=== PATIENT | female | born 1945 | race Caucasian/White ===

== ENCOUNTER → 2016-08-15 | Outpatient (CLI) | payer OTHER ==
[~2016-08-15] MED LIST: MAGNEVIST IV PRN
--- NOTE | 2016-08-15 10:01 | DIAGNOSTIC IMAGING REPORT ---
MRI OF THE ABDOMEN COMBO CLINICAL HISTORY: Renal nodule. Hepatic cysts.. COMPARISON STUDY: 02/26/2016. TECHNIQUE: MRI of the abdomen is performed transverse T1 and T2-weighted sequences in the axial and coronal planes. Contrast enhanced sequences were acquired following the IV administration of . FINDINGS: Lower chest: No pleural effusion is identified. The heart is normal in size. Liver: Mild fatty infiltration. Several small hepatic cysts unchanged. Gallbladder: Unremarkable. Spleen: Normal in size and signal intensity. Pancreas: Unremarkable. Adrenal glands: Unremarkable. Kidneys: Unchanging 5 mm exophytic nodule left kidney. Several renal microcysts are present unchanged. No evidence for new or interval finding. No significant postcontrast enhancement of any densities in question. No significant upper abdominal adenopathy. Bowel: Visualized portions of the small bowel and colon show no evidence of obstruction. Peritoneum: There is no abdominal ascites. Lymphadenopathy: None. Skeletal structures: Visualized skeletal structures times are normal marrow signal intensity. IMPRESSION: 1. Several unchanging hepatic microcysts. 2. Unchanging 5 mm exophytic indeterminate nodule left kidney. The stability present diminishes somewhat the possibility of a neoplastic process. 3. A repeat 12 month MRI follow-up is suggested. 4. No evidence for new or interval process as compared to the prior study. Electronically signed by: Tereso Staples M.D. 08/15/2016 9:59 AM Dictated Date/Time: 08/15/2016 9:55 AM
== END | disposition home or self-care (01) ==
LOC: C.MRIBC 08:26
PROVIDERS: ATTEND Internal Medicine
DX: N28.89 Other specified disorders of kidney and ureter (principal)

== ENCOUNTER → 2016-08-30 | Outpatient (CLI) | payer OTHER ==
[2016-08-30 13:16] LABS: ALT/SGPT 22 U/L (12-78); AST/SGOT 15 U/L (15-37); BLOOD UREA NITROGEN 15 mg/dl (7-18); BUN/CREATININE RATIO 16.6 (10-20); CALCIUM 9.2 mg/dl (8.5-10.1); CARBON DIOXIDE 28 mmol/L (21-32); CHLORIDE 105 mmol/L (98-107); CREATININE 0.89 mg/dl (0.60-1.20); GLUCOSE 97 mg/dl (70-99); POTASSIUM 3.6 mmol/L (3.5-5.1); SODIUM 143 mmol/L (136-145)
[2016-08-30 13:20] LABS: HEPATITIS B AB NEG
[2016-08-30 13:28] LABS: ALB/GLOB RATIO 1.1 (0.9-2); ALKALINE PHOSPHATASE 49 U/L (45-117); CHOLESTEROL 194 mg/dl (0-200); CHOLESTEROL/HDL RATIO 3.8; HDL CHOLESTEROL 51 mg/dl; LDL CHOLESTEROL CALCULATED 99 mg/dl; TRIGLYCERIDES 218 mg/dl (0-150); VERY LOW DENSITY LIPOPROT CALC 44 mg/dl
== END | disposition home or self-care (01) ==
LOC: C.LABPBG 08:22
PROVIDERS: ATTEND Internal Medicine
DX: R79.9 Abnormal finding of blood chemistry, unspecified (principal); K76.0 Fatty (change of) liver, not elsewhere classified

== ENCOUNTER → 2017-02-16 | Outpatient (CLI) | payer OTHER ==
[2017-02-16 13:11] LABS: ALT/SGPT 31 U/L (12-78); AST/SGOT 20 U/L (15-37); BLOOD UREA NITROGEN 18 mg/dl (7-18); CALCIUM 9.4 mg/dl (8.5-10.1); CARBON DIOXIDE 31 mmol/L (21-32); CHLORIDE 105 mmol/L (98-107); CREATININE 0.85 mg/dl (0.60-1.20); GLUCOSE 90 mg/dl (70-99); POTASSIUM 3.6 mmol/L (3.5-5.1); SODIUM 140 mmol/L (136-145)
[2017-02-16 13:22] LABS: ALKALINE PHOSPHATASE 52 U/L (45-117)
== END | disposition home or self-care (01) ==
LOC: C.LABPBG 10:09
PROVIDERS: ATTEND Internal Medicine
DX: K76.0 Fatty (change of) liver, not elsewhere classified (principal)

== ENCOUNTER → 2017-08-17 | Outpatient (CLI) | payer OTHER ==
[2017-08-17 12:47] LABS: ALBUMIN 3.7 gm/dl (3.4-5.0); ALT/SGPT 27 U/L (12-78); AST/SGOT 22 U/L (15-37); BLOOD UREA NITROGEN 15 mg/dl (7-18); CARBON DIOXIDE 31 mmol/L (21-32); CREATININE 0.98 mg/dl (0.60-1.20); GLUCOSE 98 mg/dl (70-99); POTASSIUM 3.8 mmol/L (3.5-5.1); SODIUM 139 mmol/L (136-145)
[2017-08-17 12:49] LABS: ALKALINE PHOSPHATASE 50 U/L (45-117); TOTAL PROTEIN 7.2 gm/dl (6.4-8.2)
== END | disposition home or self-care (01) ==
LOC: C.LABPBG 08:42
PROVIDERS: ATTEND Internal Medicine
DX: E78.5 Hyperlipidemia, unspecified (principal); M85.80 Other specified disorders of bone density and structure, unspecified site

== ENCOUNTER → 2017-08-22 | Outpatient (CLI) | payer OTHER ==
--- NOTE | 2017-08-22 17:13 | DIAGNOSTIC IMAGING REPORT ---
ABDOMEN COMBO CLINICAL HISTORY: 72 years-old Female presenting with N28.89 Renal mass, [id number]. TECHNIQUE: Multisequence, multiplanar MR imaging of the abdomen was performed before and after the administration of intravenous contrast. IV contrast: 8 mL of Gadavist. COMPARISON: 08/15/2016. FINDINGS: Localizer images: Unremarkable. Lung bases: Lungs and pleural spaces clear. Normal heart size. No pericardial or pleural effusion. Liver: Normal morphology. Multiple well-defined nonenhancing T2 hyperintense lesions compatible with hepatic cysts or hamartomas. Hepatic fat fraction measures 3.5%, which is normal. Patent hepatic vasculature. Biliary: No intrahepatic or extrahepatic biliary ductal dilatation. Gallbladder decompressed. Pancreas: Unchanged T2 hyperintense nonenhancing 4 mm cyst in the pancreatic head-neck (series 4 image 15). No pancreatic ductal dilatation. Spleen: Normal. Adrenal glands: Normal. Kidneys and ureters: Scattered T1 hyperintense subcentimeter lesions in the left kidney. One of these lesions is the previously noted indeterminate exophytic lesion arising from the lower pole to interpolar region of the left kidney, which has slightly decreased in size now measuring 4 mm, previously 5 mm. The lesion is T2 hypointense. Several T2 hyperintense nonenhancing lesions noted in the kidneys, likely simple cyst but too small to characterize. No hydronephrosis. Single renal arteries bilaterally. Allowing for degradation of delayed postcontrast imaging, no evidence of enhancement of this lesion. Bowel: Normal appendix. No bowel obstruction. Peritoneal cavity: No free fluid or intraperitoneal gas. Lymph nodes: No enlarged lymph nodes in the abdomen. Vasculature: Aorta and IVC patent and normal in caliber. Abdominal wall: Normal. Musculoskeletal: Normal. IMPRESSION: 1. Slight interval decrease in size of the previously noted left renal lesion, which is T1 hyperintense and nonenhancing, characteristic of a hemorrhagic or proteinaceous renal cyst. No evidence of a solid renal neoplasm. 2. 4 mm pancreatic cyst, which may represent a small side branch intraductal papillary mucinous neoplasm or mucinous cyst. No worrisome features. Electronically signed by: Pedro Carrasco M.D. 08/22/2017 5:12 PM Dictated Date/Time: 08/22/2017 5:01 PM
== END | disposition home or self-care (01) ==
LOC: C.MRI 15:19
PROVIDERS: ATTEND Internal Medicine
DX: N28.89 Other specified disorders of kidney and ureter (principal); K86.2 Cyst of pancreas

== ENCOUNTER → 2017-10-06 | Outpatient (CLI) | payer OTHER ==
--- NOTE | 2017-10-06 15:04 | MAMMOGRAPHY REPORT ---
BILATERAL DIGITAL SCREENING MAMMOGRAM TOMOSYNTHESIS WITH CAD: 10/06/2017 CLINICAL HISTORY: Routine screening. Patient has no complaints. TECHNIQUE: Breast tomosynthesis in addition to standard 2D mammography was performed. Current study was also evaluated with a Computer Aided Detection (CAD) system. COMPARISON: Comparison is made to exams dated: 10/01/2015 mammogram, 09/17/2014 mammogram, 09/16/2013 m ammogram, 09/14/2012 mammogram, 09/09/2011 mammogram, and 08/04/2009 ultrasound - [facility] nter. BREAST COMPOSITION: The tissue of both breasts is almost entirely fatty. FINDINGS: No suspicious masses, calcifications, or areas of architectural distortion are noted in ei ther breast. There has been no significant interval change compared to prior exams. Asymmetry in the left lower inner quadrant is stable compared to multiple prior exams. IMPRESSION: ACR BI-RADS CATEGORY 2: BENIGN There is no mammographic evidence of malignancy. A 1 year screening mammogram is recommended. The pa tient will receive written notification of the results. Approximately 10% of breast cancers are not detected with mammography. A negative mammographic report should not delay biopsy if a clinically suggestive mass is present. Karla Angela M.D. /:10/06/2017 07:46:55 [employer]: Theresa Chu, [facility] letter sent: Normal 1/2 BI-RADS Code: ACR BI-RADS Category 2: Benign
== END | disposition home or self-care (01) ==
LOC: C.MAMM 07:23
PROVIDERS: ATTEND Internal Medicine
DX: Z12.31 Encounter for screening mammogram for malignant neoplasm of breast (principal)

== ENCOUNTER 2018-08-24 17:15 | Observation (INO) ==
[2018-08-24] MEDS ORDERED: ACETAMINOPHEN 1,000 MG/100 ML VIAL IV STA (17:38)
[2018-08-24 18:11] LABS: Basophils # (auto) 0.02 K/uL (0-0.2); Basophils % (auto) 0.1 %; Eosinophils # (auto) 0.09 K/uL (0-0.5); Eosinophils % (auto) 0.7 %; Hematocrit (blood only) 44.2 % (37-47); Hemoglobin 14.5 g/dL (12.0-16.0); Immature Granulocytes # (auto) 0.02 K/uL (0.00-0.02); Immature Granulocytes % (auto) 0.1 %; Lymphocytes # (auto) 4.31 K/uL (1.2-3.4); Lymphocytes % (auto) 32.1 %; Mean Corpuscular Hgb Conc 32.8 g/dL (32-36); Mean Corpuscular Volume 91.9 fL (80-100); Mean Platelet Volume 10.2 fL (7.4-10.4); Monocytes # (auto) 0.94 K/uL (0.11-0.59); Neutrophils # (auto) 8.05 K/uL (1.4-6.5); Platelet Count 209 K/uL (130-400); RDW Coefficient of Variation 13.5 % (11.5-14.5); RDW Standard Deviation 45.3 fL (36.4-46.3); Red Blood Count 4.81 M/uL (4.2-5.4); White Blood Count 13.43 K/uL (4.8-10.8)
--- NOTE | 2018-08-24 18:24 | XRay Report ---
XR chest 1V portable CLINICAL HISTORY: Atypical chest pain COMPARISON STUDY: No previous studies for comparison. FINDINGS: The heart is mildly enlarged. There is no failure. There is no lobar consolidation. There a re no pleural effusions. There is minor basilar atelectasis.[ IMPRESSION: Minor basilar atelectasis. No evidence of lobar consolidation. No evidence of failure. Electronically signed by: Alex Zuñiga M.D. 08/24/2018 6:23 PM
[2018-08-24 18:27] LABS: Alanine Aminotransferase 21 U/L (12-78); Albumin Level 3.6 gm/dl (3.4-5.0); Aspartate Aminotransferase 12 U/L (15-37); BUN Creatinine Ratio 14.3 (10-20); Bilirubin Direct 0.1 mg/dl (0-0.2); Blood Urea Nitrogen 13 mg/dl (7-18); Calcium 9.1 mg/dl (8.5-10.1); Carbon Dioxide 30 mmol/L (21-32); Chloride 104 mmol/L (98-107); Creatinine Clr Calc Pharmacy 61.5 ml/min; Est GFR (African American) 72.5; Est GFR (Non-African American) 62.6; Glucose 87 mg/dl (70-99); Potassium 3.5 mmol/L (3.5-5.1); Sodium 139 mmol/L (136-145)
[2018-08-24 18:30] LABS: Albumin Globulin Ratio 0.9 (0.9-2); Alkaline Phosphatase 52 U/L (45-117); Bilirubin,Total 0.5 mg/dl (0.2-1); Total Protein 7.6 gm/dl (6.4-8.2); Troponin I < 0.015 ng/ml (0-0.045)
[2018-08-24] MEDS ORDERED: OPTIRAY 320 125ml IV PRN (20:15)
--- NOTE | 2018-08-24 20:23 | CT Scan Report ---
CT ANGIOGRAM OF THE CHEST CLINICAL HISTORY: Atypical chest pain and shortness of breath. Possible pulmonary embolism. COMPARISON STUDY: Chest x-ray dated August 24, 2018, MRI the abdomen dated August 22, 2017 TECHNIQUE: Following the IV administration of 79 mL of Optiray-320, CT angiogram of the thorax was pe rformed from the thoracic inlet to the lung bases utilizing the pulmonary embolus protocol. Images ar e reviewed in the axial, sagittal, and coronal planes. IV contrast was administered without complicat ion. MIP imaging was performed. A dose lowering technique was utilized adhering to the principles of ALARA. CT DOSE: 421.48 mGy.cm FINDINGS: The visualized portions of the upper abdomen reveal hepatic hypodensities. These were previously susp ected represent hepatic cysts or hamartomas No pathologically enlarged axillary mediastinal or hilar lymph nodes were visualized. There was no evidence of thoracic aortic dilatation. There are moderate bilateral pulmonary artery filling defects involving the right lower lobe left low er lobe and left upper lobe. The findings are most pronounced within the right lower lobe. There is e quivocal slight bowing of the interventricular septum and mild right ventricular strain cannot be exc luded.. There is a trace right pleural effusion There are minor right lower lobe airspace opacities, possibly secondary to pulmonary infarction given the extensive pulmonary embolism. IMPRESSION: Acute bilateral pulmonary embolism. Electronically signed by: Alex Zuñiga M.D. 08/24/2018 8:22 PM
[2018-08-24] MEDS ORDERED: ENOXAPARIN 1 MG/KG SC STA (20:29)
[2018-08-24] MEDS ORDERED: ENOXAPARIN 100 MG/1ML SYR ONE (20:34)
[2018-08-24] MEDS ORDERED: ENOXAPARIN 80 MG/0.8 ML SYR SQ ONE (20:45)
--- NOTE | 2018-08-24 21:34 | History & Physical Report ---
Date of Service August 24, 2018 Assessment & Plan (1) Bilateral pulmonary embolism: 73-year-old female with a past medical history of osteoporosis on raloxifene presents with 1 day of right shoulder/back pain and shortness of breath. Patient was found to have bilateral pulmonary embolism. Bilateral pulmonary embolism -CT showed acute bilateral pulmonary embolism, with concern for possible right heart strain on CT. Bedside echocardiogram was normal Admit to telemetry, EKG in the morning Patient started on Lovenox in the ED, will continue BID dosing Case management consult to discuss outpatient anticoagulation Osteoporosis Allergic to Fosamax Currently on raloxifenediscontinuing the medication as it puts her at increased clotting risk Hyperlipidemia Continue simvastatin Hypertension Continue Triamterene-HCTZ FENheart healthy diet DVT prophylaxisLovenox (2) HTN (hypertension): (3) Bursitis of right hip: (4) Age related osteoporosis: (5) Hypothyroidism: (6) Hyperlipidemia: History of Present Illness Chief Complaint: 73-year-old female with a past medical history of osteoporosis , currently on raloxifene presents with 1 day of right shoulder/back pain and shortness of breath. She says that the pain started in her back last night she went to bed and says that it migrated to her shoulder throughout the day today. She is not overtly short of breath, but she says that when she went upstairs today at work she noticed that she was more winded than usual. She relates that she had left calf pain over the past couple weeks. The patient is currently on raloxifene for osteoporosis. She states that she was started after discovering she was allergic to Fosamax. She says that she is pretty sedentary at work and also relates that she has been less active since dealing with right hip pain-- diagnosed right trochanteric bursitis. She denies any cough, hemoptysis. She denies any recent surgeries. Patient is a non-smoker. She does endorse a family history of blood clots. Primary Care Provider: Pedro Ortega MD Allergies Allergy/AdvReac Type Severity Reaction Status Date / Time alendronate sodium Allergy Mild chest pain Verified 08/24/18 18:31 Home Medications Home Medications Medication Instructions Recorded Confirmed Type calcium carbonate-vitamin D3 1 tab PO BID 08/24/18 08/24/18 History [Caltrate 600 + D] latanoprost 1 drp OPB PM 08/24/18 08/24/18 History levothyroxine 112 mcg PO DAILY 08/24/18 08/24/18 History omega 6-dzg-zes-fish oil [Fish Oil] 1 cap PO DAILY 08/24/18 08/24/18 History raloxifene 60 mg PO DAILY 08/24/18 08/24/18 History simvastatin 20 mg PO DAILY 08/24/18 08/24/18 History triamterene-hydrochlorothiazid 1 tab PO DAILY 08/24/18 08/24/18 History Past Med/Surg History Surgical History No pertinent past surgical history Family History Other Family history non-contributory Social History Current Living Situation: Spouse Other Information That Helps Us Care for You: No Feels Safe at Home: Yes Safety Concerns: Feels Safe At This Time Smoking Status: Never smoker Do You Dip or Chew Tobacco: No Second Hand Exposure: No Hx Alcohol Use: No Hx Substance Use: No Beliefs That Will Affect Care: None Preferred Language: Vietnamese Communication Ability: Effective [place] Required: No Review of Systems Constitutional: no fever, no chills and no sweats Eyes: no blind spots, no eye pain and no spots in vision Respiratory: + dyspnea on exertion and + pain on inspiration; no cough, no chest congestion, no hemoptysis and no wheezing Cardiovascular: + chest pain; no chest pain with activity, no palpitations and no calf pain Gastrointestinal: no abdominal pain, no nausea and no vomiting Genitourinary (Female): no dysuria, no urinary frequency and no urinary hesitancy Musculoskeletal: + back pain and + joint pain Integumentary: no rash, no lesions and no sores Neurologic: + headache(s) Physical Exam 2 Vital Signs (Past 24 Hours): Last Vital Signs Temp 37.1 C 08/24/18 17:17 Pulse 66 08/24/18 17:17 Resp 20 08/24/18 17:17 BP 173/77 H 08/24/18 17:17 Pulse Ox 96 08/24/18 18:04 Constitutional: WD/WN, vitals as above Eyes: PERRL, conjunctivae normal, anicteric sclerae ENMT: external ear and nose normal, oropharynx normal Neck: trachea midline, no thyromegaly Respiratory: normal respiratory effort, lungs clear to auscultation Cardiovascular: RRR, no murmur, no edema Gastrointestinal (Abdomen): normal bowel sounds, soft, nontender, no hepatosplenomegaly Musculoskeletal: no cyanosis or clubbing, extremities motor strength 5/5 Skin: no rashes, warm and dry Psychiatric: A+Ox3, euthymic affect Lymphatic: no cervical or axillary lymphadenopathy Results & Data Laboratory Results Laboratory Last Values WBC 13.43 K/uL (4.8-10.8) H 08/24/18 18:00 RBC 4.81 M/uL (4.2-5.4) 08/24/18 18:00 Hgb 14.5 g/dL (12.0-16.0) 08/24/18 18:00 Hct 44.2 % (37-47) 08/24/18 18:00 MCV 91.9 fL (80-100) 08/24/18 18:00 MCH 30.1 pg (25-34) 08/24/18 18:00 MCHC 32.8 g/dL (32-36) 08/24/18 18:00 RDW Std Deviation 45.3 fL (36.4-46.3) 08/24/18 18:00 RDW Coeff of Edy 13.5 % (11.5-14.5) 08/24/18 18:00 Plt Count 209 K/uL (130-400) 08/24/18 18:00 MPV 10.2 fL (7.4-10.4) 08/24/18 18:00 Immature Gran % (Auto) 0.1 % 08/24/18 18:00 Neut % (Auto) 60.0 % 08/24/18 18:00 Lymph % (Auto) 32.1 % 08/24/18 18:00 Mcduffie % (Auto) 7.0 % 08/24/18 18:00 Eos % (Auto) 0.7 % 08/24/18 18:00 Baso % (Auto) 0.1 % 08/24/18 18:00 Immature Gran # (Auto) 0.02 K/uL (0.00-0.02) 08/24/18 18:00 Neut # (Auto) 8.05 K/uL (1.4-6.5) H 08/24/18 18:00 Lymph # (Auto) 4.31 K/uL (1.2-3.4) H 08/24/18 18:00 Mcduffie # (Auto) 0.94 K/uL (0.11-0.59) H 08/24/18 18:00 Eos # (Auto) 0.09 K/uL (0-0.5) 08/24/18 18:00 Baso # (Auto) 0.02 K/uL (0-0.2) 08/24/18 18:00 PT 10.0 Seconds (9.0-12.0) 08/24/18 18:00 INR 1.0 (0.9-1.1) 08/24/18 18:00 APTT 26.4 Seconds (21.0-31.0) 08/24/18 18:00 PTT Ratio 1.0 08/24/18 18:00 D-Dimer 3720 ug/L FEU (0-500) H* 08/24/18 18:00 Sodium 139 mmol/L (136-145) 08/24/18 18:00 Potassium 3.5 mmol/L (3.5-5.1) 08/24/18 18:00 Chloride 104 mmol/L (98-107) 08/24/18 18:00 Carbon Dioxide 30 mmol/L (21-32) 08/24/18 18:00 Anion Gap 5.0 (3-11) 08/24/18 18:00 BUN 13 mg/dl (7-18) 08/24/18 18:00 Creatinine 0.91 mg/dl (0.6-1.2) 08/24/18 18:00 Est Cr Clr Drug Dosing 61.5 ml/min 08/24/18 18:00 Est GFR ( Amer) 72.5 08/24/18 18:00 Est GFR (Non-Af Amer) 62.6 08/24/18 18:00 BUN/Creatinine Ratio 14.3 (10-20) 08/24/18 18:00 Glucose 87 mg/dl (70-99) 08/24/18 18:00 Calcium 9.1 mg/dl (8.5-10.1) 08/24/18 18:00 Magnesium 2.0 mg/dl (1.8-2.4) 08/24/18 18:00 Total Bilirubin 0.5 mg/dl (0.2-1) 08/24/18 18:00 Direct Bilirubin 0.1 mg/dl (0-0.2) 08/24/18 18:00 AST 12 U/L (15-37) L 08/24/18 18:00 ALT 21 U/L (12-78) 08/24/18 18:00 Alkaline Phosphatase 52 U/L (45-117) 08/24/18 18:00 Troponin I < 0.015 ng/ml (0-0.045) 08/24/18 18:00 Total Protein 7.6 gm/dl (6.4-8.2) 08/24/18 18:00 Albumin 3.6 gm/dl (3.4-5.0) 08/24/18 18:00 Globulin 4.0 gm/dl (2.5-4.0) 08/24/18 18:00 Albumin/Globulin Ratio 0.9 (0.9-2) 08/24/18 18: Lipase 254 U/L (73-393) 08/24/18 18:[address] ANGIOGRAM OF THE CHEST CLINICAL HISTORY: Atypical chest pain and shortness of breath. Possible pulmonary embolism. COMPARISON STUDY: Chest x-ray dated August 24, 2018, MRI the abdomen dated August 22, 2017 TECHNIQUE: Following the IV administration of 79 mL of Optiray-320, CT angiogram of the thorax was performed from the thoracic inlet to the lung bases utilizing the pulmonary embolus protocol. Images are reviewed in the axial, sagittal, and coronal planes. IV contrast was administered without complication. MIP imaging was performed. A dose lowering technique was utilized adhering to the principles of ALARA. CT DOSE: 421.48 mGy.cm FINDINGS: The visualized portions of the upper abdomen reveal hepatic hypodensities. These were previously suspected represent hepatic cysts or hamartomas No pathologically enlarged axillary mediastinal or hilar lymph nodes were visualized. There was no evidence of thoracic aortic dilatation. There are moderate bilateral pulmonary artery filling defects involving the right lower lobe left lower lobe and left upper lobe. The findings are most pronounced within the right lower lobe. There is equivocal slight bowing of the interventricular septum and mild right ventricular strain cannot be excluded.. There is a trace right pleural effusion There are minor right lower lobe airspace opacities, possibly secondary to pulmonary infarction given the extensive pulmonary embolism. IMPRESSION: Acute bilateral pulmonary embolism. Electronically signed by: Alex Zuñiga M.D. 08/24/2018 8:22 PM Patient: STEVE LOZA EAdmit Date: 08/24/18 MR#: [id number] Acct ID:[id number]: [facility] Zip: [place] [address] Age: 73Location: ED Sex: F Room/Bed: Att Phy: Diagnosis: SOB, RT ARM PAIN, BACK PAIN Terra Phy: Pedro Ortega M.D.Service Date: 08/24/18 Fam Phy: Interpreting Phy: Alex Zuñiga MD Admit Phy: Ordering Phy: Jared Washington M.D. cc: ~ XR chest 1V portable CLINICAL HISTORY: Atypical chest pain COMPARISON STUDY: No previous studies for comparison. FINDINGS: The heart is mildly enlarged. There is no failure. There is no lobar consolidation. There are no pleural effusions. There is minor basilar atelectasis.[ IMPRESSION: Minor basilar atelectasis. No evidence of lobar consolidation. No evidence of failure. Electronically signed by: Alex Zuñiga M.D. 08/24/2018 6:23 PM Code Status & VTE Plan Code Status Full Code VTE Prophylaxis Plan VTE Prophylaxis will be ordered: Yes Supervising Physician Co-Signing Physician Notes Patient seen and examined, chart reviewed, case discussed with Dr. Pike and I agree with his assessment and plan as documented above. Briefly, patient is a 73yo female with history of HLP, Hypothyroid, HTN presenting with acute SOB and right shoulder pain. Found to have bilateral PEs. Patient is active and independent. She reports being UTD with cancer screenings. Was fairly immobile yesterday, sitting at her desk all day. On physical exam she is afebrile, hemodynamically stable, NAD, adequate oxygenation on room air HEENT: MMM, neck supple, no JVD Heart: +S1/S2, regular, no m/r/g Lungs: CTA, no rales/rhonchi/wheezes Abd: +BS, soft, NT/ND Ext: warm, no edema, +cramping with tenderness to palpation Neuro: nonfocal Labs and images reviewed. Mild leukocytosis with WBC=13, elevated D-dimer. CT with acute bilateral PE, ?septal bowing c/w right heart strain. Assessment/Plan: Admit to tele Anticoagulation with Lovenox Remainder of plan as above Resident Activity Tracking Resident Involvement: Resident Care Provided Care Provided: Adult Hospital Medicine
[2018-08-24 21:59] LABS: Partial Thromboplastin Time 26.4 Seconds (21.0-31.0)
[2018-08-24] MEDS ORDERED: ONDANSETRON INJ 2 MG/ML 2 ML VIAL IV PRN (23:05)
[2018-08-24] MEDS ORDERED: ALUMINUM/MAGNESIUM SUSP 30 ML UDC PO PRN (23:05)
[2018-08-24] MEDS ORDERED: POLYETHYLENE (MIRALAX) 17 GM PACK PO PRN (23:05)
[2018-08-24] MEDS ORDERED: MAGNESIUM HYDROXIDE SUSP 30 ML UDC PO PRN (23:05)
[2018-08-24] MEDS ORDERED: ACETAMINOPHEN 325 MG TAB PO PRN (23:05)
--- NOTE | 2018-08-25 00:28 | Emergency Department Note ---
Entered by Fernando Kuo acting as a scribe for Jared Washington MD History of Present Illness General Chief complaint: Shortness of Breath/Dyspnea Stated complaint: SOB, RT ARM PAIN, BACK PAIN Time Seen by Provider: 08/24/18 17:25 Source: patient Limitations: no limitations History of Present Illness Onset (ago): day(s) (last night) Location: chest Radiation: other (waist and arm) Pain Consistency: + constant Maximum Pain Intensity: 1 Exacerbated By: + movement Associated symptoms: + shortness of breath and + other (getting frustrated easily) The patient is a 73 year old female who presents to the Emergency Room with complaints of SOB starting last night. The patient states she started to have right shoulder pain that radiated down to her waist and arm. The patient states she has constant right back flank pain. She notes she does not have SOB when just sitting or laying down. She states her pain is worse when she is moving. She states it hurts her lungs to take a deep breath. The patient states she has a bad knee and hip. Her friend notes her blood pressure has been up and has been getting frustrated easily. The patient denies history of chest pain, back pain, and taking any blood thinners. Home Medications Home Medications Medication Instructions Recorded Confirmed Type calcium carbonate-vitamin D3 1 tab PO BID 08/24/18 08/24/18 History [Caltrate 600 + D] latanoprost 1 drp OPB PM 08/24/18 08/24/18 History levothyroxine 112 mcg PO DAILY 08/24/18 08/24/18 History simvastatin 20 mg PO DAILY 08/24/18 08/24/18 History triamterene-hydrochlorothiazid 1 tab PO DAILY 08/24/18 08/24/18 History apixaban [Eliquis] 5 mg PO BID #74 tab 08/25/18 Rx Allergies Allergy/AdvReac Type Severity Reaction Status Date / Time alendronate sodium Allergy Mild chest pain Verified 08/24/18 18:31 Past Med/Surg History Surgical History No pertinent past surgical history Family History Other Family history non-contributory Social History marital status: Current Living Situation: Spouse Other Information That Helps Us Care for You: No Feels Safe at Home: Yes Safety Concerns: Feels Safe At This Time Smoking Status: Never smoker Do You Dip or Chew Tobacco: No Second Hand Exposure: No Hx Alcohol Use: No Hx Substance Use: No Beliefs That Will Affect Care: None Communication Ability: Effective Review of Systems See HPI for pertinent positives & negatives. and A total of 10 systems reviewed and were otherwise negative Physical Exam Vital Signs Vital Signs - 24 hr 08/24/18 23:11 08/24/18 23:34 08/25/18 03:41 Temperature 36.5 C 36.7 C Temperature Source Oral Oral Pulse Rate [Apical] 64 52 L Pulse Rhythm [Apical] Regular Pulse Strength [Apical] Normal Respiratory Rate 20 22 Respiratory Effort / Characteristics Non-Labored Spontaneous Non-Labored Spontaneous Respiratory Depth Normal Normal Respiratory Pattern Regular Regular Blood Pressure [Left Arm] 115/70 Blood Pressure [Right Arm] 117/63 Blood Pressure Mean [Left Arm] 85 Blood Pressure Mean [Right Arm] 81 Blood Pressure Position [Left Arm] Blood Pressure Position [Right Arm] Sitting Pulse Oximetry 93 92 Oxygen Delivery Method Room Air Room Air Room Air 08/25/18 08:01 08/25/18 11:19 Temperature 36.7 C 36.7 C Temperature Source Oral Pulse Rate [Apical] 56 L 56 L Pulse Rhythm [Apical] Pulse Strength [Apical] Respiratory Rate 22 Respiratory Effort / Characteristics Respiratory Depth Respiratory Pattern Blood Pressure [Left Arm] 119/71 119/71 Blood Pressure [Right Arm] 117/63 Blood Pressure Mean [Left Arm] 87 Blood Pressure Mean [Right Arm] Blood Pressure Position [Left Arm] Lying Blood Pressure Position [Right Arm] Pulse Oximetry 95 95 Oxygen Delivery Method Room Air GENERAL: Awake, alert, well-appearing, in no distress HENT: Normocephalic, atraumatic. Oropharynx with dry mucous membranes and otherwise unremarkable. EYES: Normal conjunctiva. Sclera non-icteric. NECK: Supple. No nuchal rigidity. FROM. No JVD. RESPIRATORY: Clear to auscultation. CARDIAC: Regular rate, normal rhythm. Extremities warm and well perfused. Pulses equal. ABDOMEN: Soft, non-distended. No rebound or guarding. No masses. Mild RLQ tenderness. RECTAL: Deferred. MUSCULOSKELETAL: Chest examination reveals no tenderness. The back is symmetrical on inspection without obvious abnormality. There is no CVA tenderness to palpation. No joint edema. LOWER EXTREMITIES: Calves are equal size bilaterally and non-tender. No edema. No discoloration. NEURO: Normal sensorium. No sensory or motor deficits noted. SKIN: No rash or jaundice noted. Course 1729: Past medical records reviewed. The patient was evaluated in room A12B, and a complete history and physical examination were performed. 2034: I reviewed the patient's case with Dr. Nickolas Montilla [facility] hospitalist. She will evaluate the patient for further management. Administered Medications Discontinued Medications Enoxaparin Sodium (Lovenox 1 Mg/Kg Providers Use Dosing Set) 85 mg 1 mg/kg (85 mg) SC NOW STA Stop: 08/24/18 20:30 Last Admin: 08/24/18 20:37 Dose: Not Given Enoxaparin Sodium (Lovenox) 80 mg SQ 2044 ONE Stop: 08/24/18 20:46 Last Admin: 08/24/18 20:40 Dose: Not Given Enoxaparin Sodium (Lovenox) Confirm Administered Dose 100 mg .ROUTE .STK-MED ONE Stop: 08/24/18 20:35 Last Admin: 08/24/18 20:36 Dose: 85 mg Enoxaparin Sodium (Lovenox) 80 mg SQ Q12H DELANEY Stop: 09/24/18 10:29 Last Admin: 08/25/18 10:52 Dose: 80 mg Acetaminophen (Ofirmev) 1,000 mg in 100 mls @ 400 mls/hr IV NOW STA Stop: 08/24/18 17:52 Last Infusion: 08/24/18 18:25 Dose: 0 mls/hr Admin: 08/24/18 18:10 Dose: 400 mls/hr Acetaminophen (Ofirmev) 65 mls @ 200 mls/hr IV Q8 DELANEY Stop: 09/24/18 05:14 Last Infusion: 08/25/18 05:45 Dose: 0 mls/hr Admin: 08/25/18 05:25 Dose: 200 mls/hr Ioversol (Optiray 320 125ml) 79 ml IV ONCE PRN PRN Reason: Interaction Checking Stop: 08/28/18 20:14 Last Admin: 08/24/18 20:15 Dose: 79 ml Levothyroxine Sodium (Synthroid) 112 mcg PO DAILYBB [facility] Stop: 09/24/18 06:29 Last Admin: 08/25/18 05:25 Dose: 112 mcg Ondansetron HCl (Zofran) 4 mg IV Q6H PRN PRN Reason: Nausea Stop: 09/23/18 23:04 Last Admin: 08/25/18 04:10 Dose: 4 mg Triamterene/HCTZ (Dyazide 37.5/25mg) 1 cap PO QAM DELANEY Stop: 09/24/18 08:59 Last Admin: 08/25/18 09:47 Dose: 1 cap Medical Decision Making Differential Diagnosis Differential diagnosis: Etiologies such as shingles, musculoskeletal pain, pericarditis, myocarditis, cardiac ischemia, pericardial tamponade, pneumonia, pneumothorax, pleural effusion, hemothorax, pleurisy, aortic pathology, pulmonary embolism, intra- abdominal process, as well as others were considered. Medical Records Attestation: I reviewed the patient's medical records. Home Medications Current Medication List: was personally reviewed by me Laboratory Data Attestation: I reviewed the patient's lab results. Result diagrams: 08/24/18 18:00 08/24/18 18:00 Lab Results 08/24/18 08/24/18 08/24/18 Range/Units 18:00 18:00 18:00 WBC 13.43 H (4.8-10.8) K/uL RBC 4.81 (4.2-5.4) M/uL Hgb 14.5 (12.0-16.0) g/dL Hct 44.2 (37-47) % MCV 91.9 (80-100) fL MCH 30.1 (25-34) pg MCHC 32.8 (32-36) g/dL RDW Std Deviation 45.3 (36.4-46.3) fL RDW Coeff of Eyd 13.5 (11.5-14.5) % Plt Count 209 (130-400) K/uL MPV 10.2 (7.4-10.4) fL Immature Gran % (Auto) 0.1 % Neut % (Auto) 60.0 % Lymph % (Auto) 32.1 % [place] % (Auto) 7.0 % Eos % (Auto) 0.7 % Baso % (Auto) 0.1 % Immature Gran # (Auto) 0.02 (0.00-0.02) K/uL Neut # (Auto) 8.05 H (1.4-6.5) K/uL Lymph # (Auto) 4.31 H (1.2-3.4) K/uL [place] # (Auto) 0.94 H (0.11-0.59) K/uL Eos # (Auto) 0.09 (0-0.5) K/uL Baso # (Auto) 0.02 (0-0.2) K/uL PT (9.0-12.0) Seconds INR (0.9-1.1) APTT (21.0-31.0) Seconds PTT Ratio D-Dimer 3720 H* (0-500) ug/L FEU Sodium 139 (136-145) mmol/L Potassium 3.5 (3.5-5.1) mmol/L Chloride 104 (98-107) mmol/L Carbon Dioxide 30 (21-32) mmol/L Anion Gap 5.0 (3-11) BUN 13 (7-18) mg/dl Creatinine 0.91 (0.6-1.2) mg/dl Est Cr Clr Drug Dosing 61.5 ml/min Est GFR ( Amer) 72.5 Est GFR (Non-Af Amer) 62.6 BUN/Creatinine Ratio 14.3 (10-20) Glucose 87 (70-99) mg/dl Calcium 9.1 (8.5-10.1) mg/dl Magnesium 2.0 (1.8-2.4) mg/dl Total Bilirubin 0.5 (0.2-1) mg/dl Direct Bilirubin 0.1 (0-0.2) mg/dl AST 12 L (15-37) U/L ALT 21 (12-78) U/L Alkaline Phosphatase 52 (45-117) U/L Troponin I < 0.015 (0-0.045) ng/ml Total Protein 7.6 (6.4-8.2) gm/dl Albumin 3.6 (3.4-5.0) gm/dl Globulin 4.0 (2.5-4.0) gm/dl Albumin/Globulin Ratio 0.9 (0.9-2) Lipase 254 (73-393) U/L Hepatitis C Ab Screen (Neg) 08/24/18 08/24/18 Range/Units 18:00 18:00 WBC (4.8-10.8) K/uL RBC (4.2-5.4) M/uL Hgb (12.0-16.0) g/dL Hct (37-47) % MCV (80-100) fL MCH (25-34) pg MCHC (32-36) g/dL RDW Std Deviation (36.4-46.3) fL RDW Coeff of Edy (11.5-14.5) % Plt Count (130-400) K/uL MPV (7.4-10.4) fL Immature Gran % (Auto) % Neut % (Auto) % Lymph % (Auto) % [place] % (Auto) % Eos % (Auto) % Baso % (Auto) % Immature Gran # (Auto) (0.00-0.02) K/uL Neut # (Auto) (1.4-6.5) K/uL Lymph # (Auto) (1.2-3.4) K/uL [place] # (Auto) (0.11-0.59) K/uL Eos # (Auto) (0-0.5) K/uL Baso # (Auto) (0-0.2) K/uL PT 10.0 (9.0-12.0) Seconds INR 1.0 (0.9-1.1) APTT 26.4 (21.0-31.0) Seconds PTT Ratio 1.0 D-Dimer (0-500) ug/L FEU Sodium (136-145) mmol/L Potassium (3.5-5.1) mmol/L Chloride (98-107) mmol/L Carbon Dioxide (21-32) mmol/L Anion Gap (3-11) BUN (7-18) mg/dl Creatinine (0.6-1.2) mg/dl Est Cr Clr Drug Dosing ml/min Est GFR ( Amer) Est GFR (Non-Af Amer) BUN/Creatinine Ratio (10-20) Glucose (70-99) mg/dl Calcium (8.5-10.1) mg/dl Magnesium (1.8-2.4) mg/dl Total Bilirubin (0.2-1) mg/dl Direct Bilirubin (0-0.2) mg/dl AST (15-37) U/L ALT (12-78) U/L Alkaline Phosphatase (45-117) U/L Troponin I (0-0.045) ng/ml Total Protein (6.4-8.2) gm/dl Albumin (3.4-5.0) gm/dl Globulin (2.5-4.0) gm/dl Albumin/Globulin Ratio (0.9-2) Lipase (73-393) U/L Hepatitis C Ab Screen Neg (Neg) Imaging Data Radiologist's Impression: Radiology results as stated below per my review and the radiologist's interpretation: XR chest 1V portable CLINICAL HISTORY: Atypical chest pain COMPARISON STUDY: No previous studies for comparison. FINDINGS: The heart is mildly enlarged. There is no failure. There is no lobar consolidation. There are no pleural effusions. There is minor basilar atelectasis.[ IMPRESSION: Minor basilar atelectasis. No evidence of lobar consolidation. No evidence of failure. Electronically signed by: Alex Zuñiga M.D. 08/24/2018 6:23 PM CLINICAL HISTORY: Atypical chest pain COMPARISON STUDY: No previous studies for comparison. FINDINGS: The heart is mildly enlarged. There is no failure. There is no lobar consolidation. There are no pleural effusions. There is minor basilar atelectasis.[ IMPRESSION: Minor basilar atelectasis. No evidence of lobar consolidation. No evidence of failure. Electronically signed by: Alex Zuñiga M.D. 08/24/2018 6:[address] ANGIOGRAM OF THE CHEST CLINICAL HISTORY: Atypical chest pain and shortness of breath. Possible pulmonary embolism. COMPARISON STUDY: Chest x-ray dated August 24, 2018, MRI the abdomen dated August 22, 2017 TECHNIQUE: Following the IV administration of 79 mL of Optiray-320, CT angiogram of the thorax was performed from the thoracic inlet to the lung bases utilizing the pulmonary embolus protocol. Images are reviewed in the axial, sagittal, and coronal planes. IV contrast was administered without complication. MIP imaging was performed. A dose lowering technique was utilized adhering to the principles of ALARA. CT DOSE: 421.48 mGy.cm FINDINGS: The visualized portions of the upper abdomen reveal hepatic hypodensities. These were previously suspected represent hepatic cysts or hamartomas No pathologically enlarged axillary mediastinal or hilar lymph nodes were visualized. There was no evidence of thoracic aortic dilatation. There are moderate bilateral pulmonary artery filling defects involving the right lower lobe left lower lobe and left upper lobe. The findings are most pronounced within the right lower lobe. There is equivocal slight bowing of the interventricular septum and mild right ventricular strain cannot be excluded.. There is a trace right pleural effusion There are minor right lower lobe airspace opacities, possibly secondary to pulmonary infarction given the extensive pulmonary embolism. IMPRESSION: Acute bilateral pulmonary embolism. Electronically signed by: Alex Zuñiga M.D. 08/24/2018 8:22 PM ECG Data Attestation: I personally reviewed and interpreted this ECG as follows: Indication: SOB/dyspnea Rate (beats per minute): 53 Rhythm: sinus bradycardia (with sinus arrhthmia) Findings: + other (normal axis); no acute ischemic change Blood Pressure Blood Pressure Findings: Elevated blood pressure Blood Pressure Disposition: further management by hospitalist ELLEN Preston The patient is a pleasant 73-year-old woman who presents emergency department with acute onset chest pain and shortness of breath per hpi. On arrival patient is in no acute distress, afebrile stable vital signs. EKG without evidence of acute ischemia. Chest x-ray negative. WBC 13, nonspecific. H/H and platelets within normal limits. D-dimer elevated at 3700. Chemistry without acidosis. Troponin negative in the setting of >6 hours of symptoms. CTA demonstrates bilateral pulmonary emboli of right lower and left lower and upper lobes. There is comment of CT evidence of possible RV strain however, limited bedside echo performed and there is no significant RV dilatation or septal bowing. Moreover the patient's IVC is collapsed. Additionally given the patient is relatively well-appearing, with normal troponin, unlikely to have strain at this time. Treatment initiated with Lovenox given normal renal function. Case was discussed with Dr. Olmos, [facility] hospitalist, who will evaluate the patient for admission. Impression & Plan Bilateral pulmonary embolism Critical Care Time I have personally spent greater than 35 minutes of critical care time in the direct management of this patient. This includes bedside care, interpretation of diagnostic studies, and testing, discussion with consultants, patient, and family members, and other required patient management activities. This 35 minutes is in excess of all separately billable procedures. Critical Care Time: Yes Total Critical Care Time: 35 Discharge Plan Visit Data *Final* Discharge Date/Time: 08/24/18 22:45 Chief Complaint: Shortness of Breath/Dyspnea Stated Complaint: SOB, RT ARM PAIN, BACK PAIN ED Provider: Jared Washington Discharge Problem: Bilateral pulmonary embolism Patient Disposition: Admitted As Inpatient Discharge Instructions Interventions: ED Discharge Assessment Last Done: 08/24/18 22:45 The scribe's documentation has been prepared under my direction and personally reviewed by me in its entirety. I confirm that the note above accurately reflects all work, treatment, procedures, and medical decision making performed by me.
[2018-08-25] MEDS ORDERED: ACETAMINOPHEN 65 ML IV SCH (05:15)
[2018-08-25] MEDS ORDERED: LEVOTHYROXINE SODIUM 112 MCG TABLET PO SCH (06:30)
--- NOTE | 2018-08-25 07:55 | Ultrasound Report ---
BILATERAL LOWER EXTREMITY VENOUS DOPPLER CLINICAL HISTORY: Pulmonary emboli. COMPARISON STUDY: Left lower extremity venous Doppler Dec 07 2017. Right lower extremity venous Do ppler May 04, 2016. TECHNIQUE: Sonography of the deep venous system of the bilateral lower extremities was performed. Co mpression and augmentation were evaluated. FINDINGS: The bilateral common femoral, superficial femoral and popliteal veins were compressible. A ugmentation was normal. Flow was shown within the deep calf vessels. IMPRESSION: No evidence of deep venous thrombus within the bilateral lower extremities. Electronically signed by: Adrian Gonzalez M.D. 08/25/2018 7:54 AM
[2018-08-25] MEDS ORDERED: TRIAMTERENE/HCTZ 37.5/25MG CAP PO SCH (09:00)
[2018-08-25] MEDS ORDERED: ENOXAPARIN 80 MG/0.8 ML SYR SQ SCH (10:30)
--- NOTE | 2018-08-25 11:34 | Discharge Summary ---
Date of Service August 25, 2018 Admission HPI Per Admitting Provider Chief Complaint: 73-year-old female with a past medical history of osteoporosis , currently on raloxifene presents with 1 day of right shoulder/back pain and shortness of breath. She says that the pain started in her back last night she went to bed and says that it migrated to her shoulder throughout the day today. She is not overtly short of breath, but she says that when she went upstairs today at work she noticed that she was more winded than usual. She relates that she had left calf pain over the past couple weeks. The patient is currently on raloxifene for osteoporosis. She states that she was started after discovering she was allergic to Fosamax. She says that she is pretty sedentary at work and also relates that she has been less active since dealing with right hip pain-- diagnosed right trochanteric bursitis. She denies any cough, hemoptysis. She denies any recent surgeries. Patient is a non-smoker. She does endorse a family history of blood clots. Primary Care Provider: Pedro Ortega MD Principal Diagnosis Acute Bilateral Pulmonary Embolism Discharge Exam Constitutional WD/WN, vitals as above Respiratory normal respiratory effort, lungs clear to auscultation Cardiovascular RRR, no murmur, no edema Psychiatric A+Ox3, euthymic affect Discharge Data Allergies Allergy/AdvReac Type Severity Reaction Status Date / Time alendronate sodium Allergy Mild chest pain Verified 08/24/18 18:31 Consultations 08/24/18 23:05 Consult Case Management - Discharge Planning Routine Ordered Studies 08/24/18 18:35 CT angio chest PE protocol Stat 08/25/18 01:02 US venous doppler LE Routine Hospital Course (1) Bilateral pulmonary embolism: 73-year-old female with a past medical history of osteoporosis on raloxifene presents with 1 day of right shoulder/back pain and shortness of breath. Patient was found to have bilateral pulmonary embolism. Bilateral pulmonary embolism -CT showed acute bilateral pulmonary embolism, with concern for possible right heart strain on CT. Bedside echocardiogram was normal Admitted to telemetry. No concerns overnight. Patient started on Lovenox in ER - going home on Eliquis 10mgs BID for 7 days, then 5mgs BID for duration of 3mths. Free prescription pharmacy card given to her. -Likely provoking factor - Raloxifene. It has been Discontinued. Osteoporosis Allergic to Fosamax Currently on raloxifenediscontinuing the medication as it puts her at increased clotting risk -To discuss future management as outpatient. Hyperlipidemia Continue simvastatin Hypertension Continue Triamterene-HCTZ Total Time Total Time Spent Total Time Spent (In Minutes): 35 min Discharge Plan Discharge Items Patient Disposition: Home - Self-Care Reason For Visit: BILATERAL PULMONARY EMBOLISM Discharge Diagnosis: Acute Bilateral Pulmonary Embolism Discharge Goals: Decrease discomfort and Improve disease control Activity: Resume your previous activity Non-emergency contact: Primary Care Provider Call non-emergency contact if: you have any medication questions Diet: Low Sodium (2gm) Addtl Provider Instructions: You were admitted for having clot in your lungs which likely happen due to you being on the medicine - Raloxifene. You will stop taking that from here on and discuss with your family physician about other options. For your clot you will stay on blood thinner Eliquis - two tablet twice a day for a week, then one tablet twice a day from there onwards for a period of 3mths unless instructed differently by your family physician. While on Eliquis - you will not be taking any other medication that increase your risk of bleeding like aspirin, ibuprofen, aleve, fish oil, etc. Prescriptions: New apixaban [Eliquis] 5 mg tablet 5 mg PO BID Qty: 74 RF: 0 Continue latanoprost 0.005 % Drops 1 drp OPB PM RF: 0 simvastatin 20 mg Tablet 20 mg PO DAILY RF: 0 triamterene-hydrochlorothiazid 37.5-25 mg Tablet 1 tab PO DAILY RF: 0 levothyroxine 112 mcg Tablet 112 mcg PO DAILY RF: 0 calcium carbonate-vitamin D3 [Caltrate 600 + D] 600 mg (1,500 mg)-800 unit Tablet,Chewable 1 tab PO BID RF: 0 Discontinued raloxifene 60 mg Tablet 60 mg PO DAILY RF: 0 omega [id number] oil [Fish Oil] 1,000 mg (120 mg-180 mg) Capsule 1 cap PO DAILY RF: 0 Stand-Alone Forms: My [facility] [id number] [facility]/Other Patient Handouts: Apixaban Oral tablet, DVT, Embolism Pulmonary Discharge Orders: Discharge Order (Routine); Ordered 08/25/18 Ordered By: Mrasha Gonzalez Admission Data Admit Date/Time: 08/24/18 22:07 Attending Provider: Marsha Gonzalez Admit Provider: Chauncey Pike Primary Care Provider: Pedro Ortega Other Providers: Nickie Olmos Service: Telemetry Other Interventions: Discharge Summary Assessment (RN) Last Done: 08/25/18 11:19
[2018-08-25] MEDS ORDERED: SIMVASTATIN 20 MG TAB PO SCH (21:00)
== END 2018-08-25 11:47 | disposition home or self-care (01) ==
LOC: ED 17:15 → 2S 17:15 → SUATTDRO 22:07 → 2S 22:45

== ENCOUNTER 2020-02-07 11:46 | Inpatient (IN) ==
[2020-02-07 12:33] LABS: Basophils # (auto) 0.03 K/uL (0-0.2); Basophils % (auto) 0.3 %; Eosinophils % (auto) 2.2 %; Hematocrit (blood only) 45.4 % (37-47); Hemoglobin 14.9 g/dL (12.0-16.0); Immature Granulocytes # (auto) 0.02 K/uL (0.00-0.02); Immature Granulocytes % (auto) 0.2 %; Lymphocytes # (auto) 4.23 K/uL (1.2-3.4); Lymphocytes % (auto) 45.7 %; Mean Corpuscular Hgb Conc 32.8 g/dL (32-36); Mean Corpuscular Volume 91.3 fL (80-100); Mean Platelet Volume 10.1 fL (7.4-10.4); Monocytes # (auto) 0.67 K/uL (0.11-0.59); Monocytes % (auto) 7.2 %; Neutrophils % (auto) 44.4 %; Platelet Count 264 K/uL (130-400); RDW Coefficient of Variation 13.3 % (11.5-14.5); RDW Standard Deviation 44.4 fL (36.4-46.3); Red Blood Count 4.97 M/uL (4.2-5.4); White Blood Count 9.25 K/uL (4.8-10.8)
[2020-02-07 12:39] LABS: Alanine Aminotransferase 35 U/L (12-78); Albumin Level 3.7 gm/dl (3.4-5.0); Aspartate Aminotransferase 29 U/L (15-37); BUN Creatinine Ratio 19.1 (10-20); Blood Urea Nitrogen 18 mg/dl (7-18); Calcium 9.4 mg/dl (8.5-10.1); Carbon Dioxide 30 mmol/L (21-32); Chloride 106 mmol/L (98-107); Creatinine Clr Calc Pharmacy 56.7 ml/min; Est GFR (African American) 69.3; Est GFR (Non-African American) 59.8; Glucose 87 mg/dl (70-99); Magnesium 2.4 mg/dl (1.8-2.4); Potassium 3.7 mmol/L (3.5-5.1); Sodium 141 mmol/L (136-145)
[2020-02-07 12:45] LABS: Partial Thromboplastin Ratio 0.9; Partial Thromboplastin Time 25.6 Seconds (21.0-31.0); Prothrombin Time 10.5 Seconds (9.0-12.0)
[2020-02-07 12:50] LABS: Albumin Globulin Ratio 1.1 (0.9-2); Alkaline Phosphatase 54 U/L (45-117); Bilirubin,Total 0.5 mg/dl (0.2-1); Globulin 3.5 gm/dl (2.5-4.0); Total Protein 7.2 gm/dl (6.4-8.2); Troponin I < 0.015 ng/ml (0-0.045)
--- NOTE | 2020-02-07 13:36 | Emergency Department Note ---
History of Present Illness General Chief complaint: Neuro Symptoms/Deficit Stated complaint: DIZZY,SOB,SLURRED SPEECH Time Seen by Provider: 02/07/20 12:06 Source: patient and EMS Mode of arrival: ambulatory Limitations: no limitations History of Present Illness Provider complaint: Dizzy, slurred speech This patient is a 74-year-old female who presents to the emergency department with complaints of fatigue sensation some lightheadedness and dry mouth. Patient admits to some slurred speech primarily yesterday. She states the symptoms began yesterday morning after using new eyedrops for glaucoma. She feels that the dry mouth is related to this medication. She spoke with her eye doctor who stated it was unlikely. She denies any unilateral weakness, confusion, visual changes, chest pain, palpitations, abdominal pain, urinary symptoms, vomiting or diarrhea. She states she takes care of her who h as dementia. Daughter states she is under a great deal of stress. She denies any syncopal episodes, falls or head injury. Home Medications Home Medications Medication Instructions Recorded Confirmed Type calcium carbonate 600 mg (1,500 1 cap PO BID cap 04/08/19 02/07/20 History mg)-vitamin D3 500 unit capsule omega-3 fatty acids 1,000 mg 1,000 mg PO DAILY 08/02/19 02/07/20 History capsule simvastatin 20 mg tablet 20 mg PO QPM #90 tab 08/02/19 02/07/20 Rx triamterene 37.5 1 tab PO DAILY #90 tab 08/02/19 02/07/20 Rx mg-hydrochlorothiazide 25 mg tablet potassium chloride 10 mEq 10 meq PO DAILY #90 tab 12/12/19 02/07/20 Rx tablet,extended release levothyroxine 125 mcg tablet 125 mcg PO DAILY #90 tab 12/25/19 02/07/20 Rx vitamin E (dl, acetate) 400 unit 400 units PO BID #30 cap 01/13/20 02/07/20 Rx capsule Allergies Allergy/AdvReac Type Severity Reaction Status Date / Time alendronate sodium AdvReac Mild chest Verified 02/07/20 12:16 pain/GI UPSET Past Med/Surg History Medical History Age related osteoporosis (Chronic) Bilateral pulmonary embolism (Resolved) Bursitis of right hip (Resolved) Gallbladder polyp (Chronic) Glaucoma Hepatic cyst (Chronic) History of pulmonary embolism HTN (hypertension) (Chronic) Hyperlipidemia (Chronic) Hypothyroidism (Chronic) Left knee pain (Resolved) Leg paresthesia (Chronic) Lumbar spinal stenosis (Chronic) Lyme disease IgG positive 02/05/2019, IgM negative--treated with doxycycline times 21 days Migraine headache (Chronic) Nonalcoholic fatty liver disease (Chronic) Obesity (Chronic) Pulmonary embolism (Resolved) Sinus bradycardia (Resolved) Surgical History H/O exploratory laparotomy History of surgical removal of lesion Hx of tonsillectomy Family History Mother , Age 61 Dementia Cancer Lung cancer Diabetes Father , Age 40 Rheumatic valvular disease Myocardial infarction Brother Dyslipidemia Hypertension Obesity Stroke, Onset Age: 44 Other Family history non-contributory Denies family history of Ovarian cancer Prostate cancer Breast cancer Colorectal cancer Social History Smoking Status: Never smoker Second Hand Exposure: Yes; Do You Dip or Chew Tobacco: No; Hx Alcohol Use: No Hx Substance Use: No Preferred Language: Maldivian Communication Ability: Effective Visual Impairment: Limited Hearing Ability: Normal Tent Assembler Required: No Beliefs That Will Affect Care: None marital status: Current Living Situation: Spouse current occupational status: employed Other Information That Helps Us Care for You: No Feels Safe at Home: Yes Safety Concerns: Feels Safe At This Time Childhood Exposure to Second-Hand Smoke: Yes caffeine: No during the past year weight has: remained stable Dental Care, Regularly: Yes Physical Activity Frequency: Daily Seatbelt Use: always Sunscreen Use: No Review of Systems See HPI for pertinent positives & negatives. and A total of 10 systems reviewed and were otherwise negative Physical Exam Vital Signs Vital Signs - 24 hr 02/07/20 15:30 02/07/20 16:03 02/07/20 16:21 Pulse Rate 39 L 56 L 47 L Pulse Rate from SpO2 Sensor 43 L Respiratory Rate 17 18 17 Blood Pressure Blood Pressure Mean Pulse Oximetry 96 Oxygen Delivery Method 02/07/20 16:22 02/07/20 16:23 02/07/20 16:30 Pulse Rate 47 L 46 L 49 L Pulse Rate from SpO2 Sensor Respiratory Rate 16 19 15 Blood Pressure 166/91 H Blood Pressure Mean 134 Pulse Oximetry 97 96 95 Oxygen Delivery Method Room Air Room Air 02/07/20 16:32 02/07/20 17:00 02/07/20 17:02 Pulse Rate 49 L 43 L 47 L Pulse Rate from SpO2 Sensor Respiratory Rate 18 16 15 Blood Pressure 136/73 Blood Pressure Mean 123 102 Pulse Oximetry 96 Oxygen Delivery Method Room Air 02/07/20 17:30 02/07/20 18:00 Pulse Rate 47 L 59 L Pulse Rate from SpO2 Sensor Respiratory Rate 16 17 Blood Pressure Blood Pressure Mean Pulse Oximetry 97 96 Oxygen Delivery Method Room Air Room Air Vital signs reviewed. General: Well-appearing 74-year-old female, in no significant distress. HEENT: No scleral icterus, PERRLA, neck supple. Atraumatic. Cardiovascular: Regular rate and rhythm, no extra sounds. Pulmonary: Clear to auscultation bilaterally, normal work of breathing. Abdomen: Soft, nontender, nondistended, positive bowel sounds. Musculoskeletal: Atraumatic, no peripheral edema. Neurologic: Patient awake alert and oriented x 3, full strength in all 4 extremities. Equal marketing financial analyst strength to the bilateral upper extremities. Cranial nerves 2 through 12 grossly intact. Skin: Warm, dry, no rash Course Administered Medications Aspirin (Ecotrin Ectab) 81 mg PO QAM [facility] Stop: 03/09/20 08:59 Last Admin: 02/08/20 08:38 Dose: 81 mg Documented by: [id number] Enoxaparin Sodium (Lovenox) 40 mg SQ Q24H DELANEY Stop: 03/09/20 05:59 Last Admin: 02/08/20 06:00 Dose: 40 mg Documented by: [id number] Fish Oil ([place]-3 (Purified Fish Oil)) 1 gm PO DAILY DELANEY Stop: 03/09/20 08:59 Last Admin: 02/08/20 08:39 Dose: 1 gm Documented by: [id number] Levothyroxine Sodium (Synthroid) 125 mcg PO DAILYBB DELANEY Stop: 03/09/20 06:29 Last Admin: 02/08/20 06:00 Dose: 125 mcg Documented by: [id number] Multivitamins/Minerals (Caltrate Plus) 1 tab PO BID DELANEY Stop: 03/08/20 20:59 Last Admin: 02/08/20 08:38 Dose: 1 tab Documented by: [id number] Admin: 02/07/20 21:14 Dose: 1 tab Documented by: [id number] Potassium Chloride (Klor-Con M10) 10 meq PO DAILY DELANEY Stop: 03/09/20 08:59 Last Admin: 02/08/20 09:03 Dose: 10 meq Documented by: [id number] Simvastatin (Zocor) 20 mg PO QPM DELANEY Stop: 03/08/20 20:59 Last Admin: 02/07/20 21:13 Dose: 20 mg Documented by: [id number] Triamterene/HCTZ (Maxzide 37.5/25mg) 1 tab PO DAILY DELANEY Stop: 03/09/20 08:59 Last Admin: 02/08/20 08:39 Dose: 1 tab Documented by: [id number] Discontinued Medications Aspirin (Ecotrin Ectab) 81 mg PO NOW STA Stop: 02/07/20 18:17 Last Admin: 02/07/20 18:35 Dose: 81 mg Documented by: [id number] Ioversol (Optiray 320 125ml) 119 ml IV ONCE ONE Stop: 02/07/20 14:16 Last Admin: 02/07/20 14:16 Dose: 119 ml Documented by: [id number] Medical Decision Making Differential Diagnosis Differential includes acute coronary syndrome, myocardial infarction, CVA, TIA, anemia, infection, pneumonia, UTI, pyelonephritis, poor nutrition, dehydration, electrolyte disturbance,hypoglycemia. Medical Records Attestation: I reviewed the patient's medical records. Home Medications Current Medication List: was personally reviewed by me Laboratory Data Attestation: I reviewed the patient's lab results. Result diagrams: 02/08/20 04:42 02/08/20 04:42 Lab Results 02/07/20 02/07/20 02/07/20 Range/Units 12:06 12:06 12:06 WBC 9.25 (4.8-10.8) K/uL RBC 4.97 (4.2-5.4) M/uL Hgb 14.9 (12.0-16.0) g/dL Hct 45.4 (37-47) % MCV 91.3 (80-100) fL MCH 30.0 (25-34) pg MCHC 32.8 (32-36) g/dL RDW Std Deviation 44.4 (36.4-46.3) fL RDW Coeff of Edy 13.3 (11.5-14.5) % Plt Count 264 (130-400) K/uL MPV 10.1 (7.4-10.4) fL Immature Gran % (Auto) 0.2 % Neut % (Auto) 44.4 % Lymph % (Auto) 45.7 % [place] % (Auto) 7.2 % Eos % (Auto) 2.2 % Baso % (Auto) 0.3 % Neut # (Auto) 4.10 (1.4-6.5) K/uL Lymph # (Auto) 4.23 H (1.2-3.4) K/uL [place] # (Auto) 0.67 H (0.11-0.59) K/uL Eos # (Auto) 0.20 (0-0.5) K/uL Baso # (Auto) 0.03 (0-0.2) K/uL Immature Gran # (Auto) 0.02 (0.00-0.02) K/uL PT 10.5 (9.0-12.0) Seconds INR 1.0 (0.9-1.1) APTT 25.6 (21.0-31.0) Seconds PTT Ratio 0.9 Sodium 141 (136-145) mmol/L Potassium 3.7 (3.5-5.1) mmol/L Chloride 106 (98-107) mmol/L Carbon Dioxide 30 (21-32) mmol/L Anion Gap 5.0 (3-11) BUN 18 (7-18) mg/dl Creatinine 0.94 (0.6-1.2) mg/dl Est Cr Clr Drug Dosing 56.7 ml/min Est GFR ( Amer) 69.3 Est GFR (Non-Af Amer) 59.8 BUN/Creatinine Ratio 19.1 (10-20) Glucose 87 (70-99) mg/dl POC Glucose (70-99) mg/dl Calcium 9.4 (8.5-10.1) mg/dl Magnesium 2.4 (1.8-2.4) mg/dl Total Bilirubin 0.5 (0.2-1) mg/dl AST 29 (15-37) U/L ALT 35 (12-78) U/L Alkaline Phosphatase 54 (45-117) U/L Troponin I < 0.015 (0-0.045) ng/ml Total Protein 7.2 (6.4-8.2) gm/dl Albumin 3.7 (3.4-5.0) gm/dl Globulin 3.5 (2.5-4.0) gm/dl Albumin/Globulin Ratio 1.1 (0.9-2) TSH 1.090 (0.300-4.500) uIu/ml Urine Color Urine Appearance (Clear) Urine pH (4.5-7.5) Ur Specific [place] (1.000-1.030) Urine Protein (Negative) Urine Glucose (UA) (Negative) Urine Ketones (Negative) Urine Blood (Negative) Urine Nitrite (Negative) Urine Bilirubin (Negative) Urine Urobilinogen (Negative) Ur Leukocyte Esterase (Negative) Urine WBC (Auto) (0-5) /hpf Urine RBC (Auto) (0-4) /hpf U Hyaline Cast (Auto) (0-5) /lpf U Epithel Cells (Auto) (0-5) /lpf Urine Bacteria (Auto) (Negative) 02/07/20 02/07/20 Range/Units 12:30 14:20 WBC (4.8-10.8) K/uL RBC (4.2-5.4) M/uL Hgb (12.0-16.0) g/dL Hct (37-47) % MCV (80-100) fL MCH (25-34) pg MCHC (32-36) g/dL RDW Std Deviation (36.4-46.3) fL RDW Coeff of Edy (11.5-14.5) % Plt Count (130-400) K/uL MPV (7.4-10.4) fL Immature Gran % (Auto) % Neut % (Auto) % Lymph % (Auto) % [place] % (Auto) % Eos % (Auto) % Baso % (Auto) % Neut # (Auto) (1.4-6.5) K/uL Lymph # (Auto) (1.2-3.4) K/uL [place] # (Auto) (0.11-0.59) K/uL Eos # (Auto) (0-0.5) K/uL Baso # (Auto) (0-0.2) K/uL Immature Gran # (Auto) (0.00-0.02) K/uL PT (9.0-12.0) Seconds INR (0.9-1.1) APTT (21.0-31.0) Seconds PTT Ratio Sodium (136-145) mmol/L Potassium (3.5-5.1) mmol/L Chloride (98-107) mmol/L Carbon Dioxide (21-32) mmol/L Anion Gap (3-11) BUN (7-18) mg/dl Creatinine (0.6-1.2) mg/dl Est Cr Clr Drug Dosing ml/min Est GFR ( Amer) Est GFR (Non-Af Amer) BUN/Creatinine Ratio (10-20) Glucose (70-99) mg/dl POC Glucose 82 (70-99) mg/dl Calcium (8.5-10.1) mg/dl Magnesium (1.8-2.4) mg/dl Total Bilirubin (0.2-1) mg/dl AST (15-37) U/L ALT (12-78) U/L Alkaline Phosphatase (45-117) U/L Troponin I (0-0.045) ng/ml Total Protein (6.4-8.2) gm/dl Albumin (3.4-5.0) gm/dl Globulin (2.5-4.0) gm/dl Albumin/Globulin Ratio (0.9-2) TSH (0.300-4.500) uIu/ml Urine Color Yellow Urine Appearance Clear (Clear) Urine pH 7.5 (4.5-7.5) Ur Specific [place] 1.009 (1.000-1.030) Urine Protein Negative (Negative) Urine Glucose (UA) Negative (Negative) Urine Ketones Negative (Negative) Urine Blood Negative (Negative) Urine Nitrite Negative (Negative) Urine Bilirubin Negative (Negative) Urine Urobilinogen Negative (Negative) Ur Leukocyte Esterase Trace H (Negative) Urine WBC (Auto) 1-5 (0-5) /hpf Urine RBC (Auto) 0-4 (0-4) /hpf U Hyaline Cast (Auto) 0 (0-5) /lpf U Epithel Cells (Auto) 5-10 H (0-5) /lpf Urine Bacteria (Auto) Negative (Negative) Imaging Data Radiologist's Impression: CT OF THE HEAD WITHOUT CONTRAST CLINICAL HISTORY: Stroke evaluation COMPARISON STUDY: MRI of the brain February 11, 2013. TECHNIQUE: Helical axial images of the head were obtained without IV contrast. Automated exposure control was utilized for the study. A dose lowering technique was utilized adhering to the principles of ALARA. FINDINGS: No acute intracranial hemorrhage, midline shift or mass effect is present. The ventricular system is unremarkable. The basilar cisterns are patent. No extra-axial collections are present. There are no findings to suggest acute dural sinus thrombosis or acute territorial infarct. No significant calvarial abnormalities are present. Visualized portions of the sinuses and mastoid air cells are clear. IMPRESSION: No acute intracranial findings. ACT 112: Negative or not required by law. Electronically signed by: Adrian Gonzalez M.D. 02/07/2020 2:21 PM Dictated: 02/07/20 141 Transcribed: 02/07/201418 CT angio neck with con, CT angio head w con CLINICAL HISTORY: 74 years-old Female with Stroke evaluation. Acute strokelike symptoms with dizziness and lightheadedness COMPARISON STUDY: Head CT of same day TECHNIQUE: Following the IV administration of 119 mL of Optiray 320, CT angiogram of the head and neck was performed from the aortic arch to the skull apex. Images are reviewed in the axial, sagittal, and coronal planes. 3-D MIPS images are created and assessed. IV contrast was administered without complication. All measurements were calculated based on NASCET criteria. A dose lowering technique was utilized adhering to the principles of ALARA. CT DOSE: 1076.65 mGy.cm FINDINGS: Mixed plaque of the thoracic aortic arch. Patency of the innominate artery and image bilateral subclavian arteries. Patent common carotid arteries. There is mild mixed plaque of the bilateral carotid bulbs and proximal internal artery arteries without high-grade stenosis. Bilateral internal carotid arteries are widely patent. Mild calcified plaque of the cavernous and supraclinoid segments. The middle and anterior cerebral arteries are patent. Codominant vertebral arteries also appear patent. There is mild kinking of the left V2 segment the level of C2 with mild luminal narrowing. Mild calcified plaque of the left V4 segment without high-grade stenosis. The basilar artery and posterior cerebral arteries appear patent. origin of the left posterior cerebral artery. Cerebral venous sinuses are patent. Lung apices are clear without pneumothorax. Streak artifact from dental amalgam hardware limits evaluation of the adjacent tissues. Mild polypoid mucosal thickening of the left maxillary sinus. There is no abnormal intracranial enhanc ement. Multilevel degenerative changes of the spine. 1.0 cm exophytic ossification involves the left occiput suggestive of a probable osteoma. IMPRESSION:Unremarkable CTA of the head and neck without aneurysm, dissection, high-grade stenosis or proximal branch occlusion. ACT 112: Negative or not required by law. The above report was generated using voice recognition software. It may contain grammatical, syntax or spelling errors. Electronically signed by: Johnny Brunner M.D. 02/07/2020 2:35 PM Dictated: 02/07/201424 Transcribed: 02/07/201424 ECG Data Attestation: I personally reviewed and interpreted this ECG as follows: Indication: + other (stroke sx) Rate (beats per minute): 44 Rhythm: + sinus bradycardia and + sinus with SA ECG Intervals/blocks: + Normal QT-c ECG ST segments: + Normal ST segments ECG Findings: no PACs and no PVCs Blood Pressure Blood Pressure Findings: Elevated blood pressure Blood Pressure Disposition: further management by hospitalist MDM Narrative This patient was evaluated and appeared to be in no significant distress. There are no appreciable neuro deficits at this time. IV access was obtained and laboratory work was drawn. An order for cardiac monitoring was placed and the patient was found to be in a sinus bradycardia at 42 bpm. Patient states she has a pulse oximeter at home and remembers seeing her bradycardia to 25 bpm but was uncertain if that was correct. CT scan of the head with CT angios of the head and neck are negative for any acute pathology. Patient's laboratory work is reassuring. There is no elevation of the troponin and TSH is within normal limits. Patient's urinalysis is clear. I feel the patient's symptoms may be related to episodic profound bradycardia. She is not on any rate controlling medications. Patient's case was discussed with the hospitalist service who will evaluate the patient for admission and further management. Patient and daughter are aware of the plan and agree. Impression & Plan Episodic ataxia with slurred speech, Bradycardia Discharge Plan Visit Data *Final* Discharge Date/Time: 02/07/20 18:45 Chief Complaint: Neuro Symptoms/Deficit Stated Complaint: DIZZY,SOB,SLURRED SPEECH ED Provider: Dianne Hendrickson Discharge Problem: Episodic ataxia with slurred speech, Bradycardia Patient Disposition: Admitted As Inpatient Discharge Instructions Interventions: ED Discharge Assessment Last Done: 02/07/20 18:45
[2020-02-07] MEDS ORDERED: OPTIRAY 320 125ml IV ONE (14:15)
--- NOTE | 2020-02-07 14:26 | CT Scan Report ---
CT OF THE HEAD WITHOUT CONTRAST CLINICAL HISTORY: Stroke evaluation COMPARISON STUDY: MRI of the brain February 11, 2013. TECHNIQUE: Helical axial images of the head were obtained without IV contrast. Automated exposure con trol was utilized for the study. A dose lowering technique was utilized adhering to the principles o f ALARA. FINDINGS: No acute intracranial hemorrhage, midline shift or mass effect is present. The ventricular system is unremarkable. The basilar cisterns are patent. No extra-axial collections are present. Ther e are no findings to suggest acute dural sinus thrombosis or acute territorial infarct. No significan t calvarial abnormalities are present. Visualized portions of the sinuses and mastoid air cells are c lear. IMPRESSION: No acute intracranial findings. ACT 112: Negative or not required by law. Electronically signed by: Adrian Gonzalez M.D. 02/07/2020 2:21 PM
--- NOTE | 2020-02-07 14:37 | CT Scan Report ---
CT angio neck with con, CT angio head w con CLINICAL HISTORY: 74 years-old Female with Stroke evaluation. Acute strokelike symptoms with dizzi ness and lightheadedness COMPARISON STUDY: Head CT of same day TECHNIQUE: Following the IV administration of 119 mL of Optiray 320, CT angiogram of the head and nec k was performed from the aortic arch to the skull apex. Images are reviewed in the axial, sagittal, a nd coronal planes. 3-D MIPS images are created and assessed. IV contrast was administered without com plication. All measurements were calculated based on NASCET criteria. A dose lowering technique was utilized adhering to the principles of ALARA. CT DOSE: 1076.65 mGy.cm FINDINGS: Mixed plaque of the thoracic aortic arch. Patency of the innominate artery and image bilateral subcla vian arteries. Patent common carotid arteries. There is mild mixed plaque of the bilateral carotid bu lbs and proximal internal artery arteries without high-grade stenosis. Bilateral internal carotid art eries are widely patent. Mild calcified plaque of the cavernous and supraclinoid segments. The middle and anterior cerebral arteries are patent. Codominant vertebral arteries also appear patent. There is mild kinking of the left V2 segment the le lidia of C2 with mild luminal narrowing. Mild calcified plaque of the left V4 segment without high-grad e stenosis. The basilar artery and posterior cerebral arteries appear patent. origin of the lef t posterior cerebral artery. Cerebral venous sinuses are patent. Lung apices are clear without pneumothorax. Streak artifact from dental amalgam hardware limits evalu ation of the adjacent tissues. Mild polypoid mucosal thickening of the left maxillary sinus. There is no abnormal intracranial enhancement. Multilevel degenerative changes of the spine. 1.0 cm exophytic ossification involves the left occiput suggestive of a probable osteoma. IMPRESSION:Unremarkable CTA of the head and neck without aneurysm, dissection, high-grade stenosis or proximal branch occlusion. ACT 112: Negative or not required by law. The above report was generated using voice recognition software. It may contain grammatical, syntax o r spelling errors. Electronically signed by: Johnny Brunner M.D. 02/07/2020 2:35 PM
[2020-02-07 14:40] LABS: Appearance Urine Clear (Clear); Bacteria Urine Automated Negative (Negative); Bilirubin Urine Negative (Negative); Blood Urine Negative (Negative); Cast Urine Automated 0 /lpf (0-5); Color Urine Yellow; Glucose Urine UA Negative (Negative); Ketones Urine Negative (Negative); Leukocyte Esterase Urine Trace (Negative); Nitrite Urine Negative (Negative); Protein Urine Negative (Negative); RBC Urine Automated 0-4 /hpf (0-4); Specific Gravity Urine 1.009 (1.000-1.030); Urobilinogen Urine Negative (Negative); pH Urine 7.5 (4.5-7.5)
--- NOTE | 2020-02-07 17:13 | History & Physical Report ---
Date of Service February 07, 2020 Assessment & Plan (1) Slurred speech: Presented with slurred speech and possible ataxia at home. Also with bradycardia which has been chronic but not quite as low as it has been in the last 24 hours Patient thinks her symptoms started after starting brimonidine eyedrops causing her to have dry mouth With risk factors for stroke of hypertension, and hyperlipidemia, warrants further investigation to rule out stroke. Symptoms may be related to bradycardia as well. No focal deficits on examination here CT angiogram of head and neck without significant stenoses -Admit to telemetry -Check brain MRI to rule out stroke -Consult neurology PT/OT/speech therapy consultations -Neuro checks and daily NIH stroke score -Check echocardiogram with bubble study -Start aspirin 81 mg once daily-if stroke ruled out, can discontinue this (2) Sinus bradycardia: With bradycardia here at times into the 30s, sinus with sinus arrhythmia She has been having some dizziness at home -Continue telemetry monitoring -Appreciate cardiology consultation She is not on any AV simona blocking agents-would avoid this Perhaps the brimonidine eyedrops are worsening her bradycardia as it is an alpha-2 adrenergic agonist -We will hold brimonidine eyedrops at this time (3) 1st degree AV block: As above Monitor on telemetry for higher degree blocks (4) Hyperlipidemia: Continue statin -Check lipid panel in the morning (5) Hypothyroidism: TSH here is normal -Continue home levothyroxine (6) Age related osteoporosis: No longer on Evista, thought to perhaps have caused her PE (7) HTN (hypertension): Blood pressures are mildly elevated here Continue triamterene/HCTZ and potassium supplementation (8) Glaucoma: Holding brimonidine drops as above Follow-up with ophthalmology (9) History of pulmonary embolism: Recently completed a 12-month course of Eliquis -We will use Lovenox SQ while here (10) DVT prophylaxis: Lovenox SQ Disposition-admit to telemetry for bradycardia and slurred speech for stroke work-up History of Present Illness Chief Complaint: Slurred speech, low heart rate Primary Care Provider: Pedro Ortega MD This patient is a 74-year-old female with a history of PE status post 12 months of treatment with Eliquis, HTN, hyperlipidemia, lumbar spinal stenosis, hypothyroidism who presents to the ER with complaints of fatigue, lightheadedness, and dry mouth as well as slurred speech since yesterday as well as her family noticing that she was walking "like she was drunk." She thought it was due to some new eyedrops she started for glaucoma. She spoke with her eye doctor who thought that this was unlikely due to the eyedrops. She denies any weakness, numbness/tingling, visual changes, confusion. She was noted in the ER to have heart rate in the 40s and reports that time she is noticed on her watch that her heart rate dips into the 20s. Her daughter is very concerned about her low heart rate. Allergies Allergy/AdvReac Type Severity Reaction Status Date / Time alendronate sodium AdvReac Mild chest Verified 02/07/20 12:16 pain/GI UPSET Home Medications Home Medications Medication Instructions Recorded Confirmed Type calcium carbonate 600 mg (1,500 1 cap PO BID cap 04/08/19 02/07/20 History mg)-vitamin D3 500 unit capsule omega-3 fatty acids 1,000 mg 1,000 mg PO DAILY 08/02/19 02/07/20 History capsule simvastatin 20 mg tablet 20 mg PO QPM #90 tab 08/02/19 02/07/20 Rx triamterene 37.5 1 tab PO DAILY #90 tab 08/02/19 02/07/20 Rx mg-hydrochlorothiazide 25 mg tablet potassium chloride 10 mEq 10 meq PO DAILY #90 tab 12/12/19 02/07/20 Rx tablet,extended release levothyroxine 125 mcg tablet 125 mcg PO DAILY #90 tab 12/25/19 02/07/20 Rx vitamin E (dl, acetate) 400 unit 400 units PO BID #30 cap 01/13/20 02/07/20 Rx capsule Past Med/Surg History Medical History Age related osteoporosis (Chronic) Bilateral pulmonary embolism (Resolved) Bursitis of right hip (Resolved) Gallbladder polyp (Chronic) Glaucoma Hepatic cyst (Chronic) History of pulmonary embolism HTN (hypertension) (Chronic) Hyperlipidemia (Chronic) Hypothyroidism (Chronic) Left knee pain (Resolved) Leg paresthesia (Chronic) Lumbar spinal stenosis (Chronic) Lyme disease IgG positive 02/05/2019, IgM negative--treated with doxycycline times 21 days Migraine headache (Chronic) Nonalcoholic fatty liver disease (Chronic) Obesity (Chronic) Pulmonary embolism (Resolved) Sinus bradycardia (Resolved) Surgical History H/O exploratory laparotomy History of surgical removal of lesion Hx of tonsillectomy Family History Mother , Age 61 Dementia Cancer Lung cancer Diabetes Father , Age 40 Rheumatic valvular disease Myocardial infarction Brother Dyslipidemia Hypertension Obesity Stroke, Onset Age: 44 Other Family history non-contributory Denies family history of Ovarian cancer Prostate cancer Breast cancer Colorectal cancer Social History Smoking Status: Never smoker Second Hand Exposure: Yes; Do You Dip or Chew Tobacco: No; Hx Alcohol Use: No Hx Substance Use: No Preferred Language: Greenlandic Communication Ability: Effective Visual Impairment: Limited Hearing Ability: Normal Corporate Director Required: No Beliefs That Will Affect Care: None marital status: Current Living Situation: Spouse current occupational status: employed Other Information That Helps Us Care for You: No Feels Safe at Home: Yes Safety Concerns: Feels Safe At This Time Childhood Exposure to Second-Hand Smoke: Yes caffeine: No during the past year weight has: remained stable Dental Care, Regularly: Yes Physical Activity Frequency: Daily Seatbelt Use: always Sunscreen Use: No Review of Systems Review of Systems: All systems reviewed & are unremarkable except as noted in HPI & below No recent fevers or chills, no cough or shortness of breath, no chest pains. No nausea or vomiting or diarrhea or constipation, no abdominal pains, no urinary symptoms. Has had some dizziness. Positive dry mouth Physical Exam Constitutional: WD/WN, vitals as above Eyes: PERRL, conjunctivae normal, anicteric sclerae ENMT: external ear and nose normal, oropharynx normal Neck: trachea midline, no thyromegaly Respiratory: normal respiratory effort, lungs clear to auscultation Cardiovascular: Rate/Rhythm: regular rhythm and + bradycardic Heart Sounds: no murmur Vessels: dorsalis pedis pulses present Extremities: no calf tenderness and no edema Chest (Breasts): Chest: normal inspection of chest Gastrointestinal (Abdomen): normal bowel sounds, soft, nontender, no hepatosplenomegaly Musculoskeletal: Extremities: extremities normal to inspection; no cyanosis and no clubbing Skin: no rashes, warm and dry Neurologic: CN's II-XI intact bilaterally, moves all extremities and awake; no focal motor deficits and not confused Speech / Cognition: normal speech and no expressive aphasia Motor/Sensory: no tremor, no pronator drift and no sensory deficit Cranial Nerves: no nystagmus Gait: no ataxic gait Coordination: normal [id number] test, normal [id number] test, normal Romberg test and normal rapid alternating movements Psychiatric: A+Ox3, euthymic affect Lymphatic: no lymphedema Results & Data Results & Data ([facility]) Vital Signs (Past 12 Hours) Vital Signs Temp Pulse Resp BP Pulse Ox 02/07/20 16:22 47 L 16 166/91 H 97 02/07/20 16:21 47 L 17 02/07/20 16:03 56 L 18 02/07/20 15:30 39 L 17 96 02/07/20 15:00 52 L 17 160/92 H 94 02/07/20 14:32 46 L 14 95 02/07/20 14:31 48 L 13 147/71 H 94 02/07/20 13:30 47 L 15 131/70 95 02/07/20 13:01 45 L 16 143/75 H 99 02/07/20 12:40 43 L 17 137/66 98 02/07/20 12:39 43 L 15 143/69 H 95 02/07/20 12:36 49 L 10 L 147/65 H 97 02/07/20 11:46 36.6 C 50 L 18 155/71 H 98 Laboratory Results 02/07/20 02/07/20 02/07/20 Range/Units 14:20 12:30 12:06 WBC (4.8-10.8) K/uL RBC (4.2-5.4) M/uL Hgb (12.0-16.0) g/dL Hct (37-47) % MCV (80-100) fL MCH (25-34) pg MCHC (32-36) g/dL RDW Std Deviation (36.4-46.3) fL RDW Coeff of Edy (11.5-14.5) % Plt Count (130-400) K/uL MPV (7.4-10.4) fL Immature Gran % (Auto) % Neut % (Auto) % Lymph % (Auto) % [place] % (Auto) % Eos % (Auto) % Baso % (Auto) % Neut # (Auto) (1.4-6.5) K/uL Lymph # (Auto) (1.2-3.4) K/uL [place] # (Auto) (0.11-0.59) K/uL Eos # (Auto) (0-0.5) K/uL Baso # (Auto) (0-0.2) K/uL Immature Gran # (Auto) (0.00-0.02) K/uL PT (9.0-12.0) Seconds INR (0.9-1.1) APTT (21.0-31.0) Seconds PTT Ratio Sodium 141 (136-145) mmol/L Potassium 3.7 (3.5-5.1) mmol/L Chloride 106 (98-107) mmol/L Carbon Dioxide 30 (21-32) mmol/L Anion Gap 5.0 (3-11) BUN 18 (7-18) mg/dl Creatinine 0.94 (0.6-1.2) mg/dl Est Cr Clr Drug Dosing 56.7 ml/min Est GFR ( Amer) 69.3 Est GFR (Non-Af Amer) 59.8 BUN/Creatinine Ratio 19.1 (10-20) Glucose 87 (70-99) mg/dl POC Glucose 82 (70-99) mg/dl Calcium 9.4 (8.5-10.1) mg/dl Magnesium 2.4 (1.8-2.4) mg/dl Total Bilirubin 0.5 (0.2-1) mg/dl AST 29 (15-37) U/L ALT 35 (12-78) U/L Alkaline Phosphatase 54 (45-117) U/L Troponin I < 0.015 (0-0.045) ng/ml Total Protein 7.2 (6.4-8.2) gm/dl Albumin 3.7 (3.4-5.0) gm/dl Globulin 3.5 (2.5-4.0) gm/dl Albumin/Globulin Ratio 1.1 (0.9-2) TSH 1.090 (0.300-4.500) uIu/ml Urine Color Yellow Urine Appearance Clear (Clear) Urine pH 7.5 (4.5-7.5) Ur Specific [place] 1.009 (1.000-1.030) Urine Protein Negative (Negative) Urine Glucose (UA) Negative (Negative) Urine Ketones Negative (Negative) Urine Blood Negative (Negative) Urine Nitrite Negative (Negative) Urine Bilirubin Negative (Negative) Urine Urobilinogen Negative (Negative) Ur Leukocyte Esterase Trace H (Negative) Urine WBC (Auto) 1-5 (0-5) /hpf Urine RBC (Auto) 0-4 (0-4) /hpf U Hyaline Cast (Auto) 0 (0-5) /lpf U Epithel Cells (Auto) 5-10 H (0-5) /lpf Urine Bacteria (Auto) Negative (Negative) 02/07/20 02/07/20 Range/Units 12:06 12:06 WBC 9.25 (4.8-10.8) K/uL RBC 4.97 (4.2-5.4) M/uL Hgb 14.9 (12.0-16.0) g/dL Hct 45.4 (37-47) % MCV 91.3 (80-100) fL MCH 30.0 (25-34) pg MCHC 32.8 (32-36) g/dL RDW Std Deviation 44.4 (36.4-46.3) fL RDW Coeff of Edy 13.3 (11.5-14.5) % Plt Count 264 (130-400) K/uL MPV 10.1 (7.4-10.4) fL Immature Gran % (Auto) 0.2 % Neut % (Auto) 44.4 % Lymph % (Auto) 45.7 % [place] % (Auto) 7.2 % Eos % (Auto) 2.2 % Baso % (Auto) 0.3 % Neut # (Auto) 4.10 (1.4-6.5) K/uL Lymph # (Auto) 4.23 H (1.2-3.4) K/uL [place] # (Auto) 0.67 H (0.11-0.59) K/uL Eos # (Auto) 0.20 (0-0.5) K/uL Baso # (Auto) 0.03 (0-0.2) K/uL Immature Gran # (Auto) 0.02 (0.00-0.02) K/uL PT 10.5 (9.0-12.0) Seconds INR 1.0 (0.9-1.1) APTT 25.6 (21.0-31.0) Seconds PTT Ratio 0.9 Sodium (136-145) mmol/L Potassium (3.5-5.1) mmol/L Chloride (98-107) mmol/L Carbon Dioxide (21-32) mmol/L Anion Gap (3-11) BUN (7-18) mg/dl Creatinine (0.6-1.2) mg/dl Est Cr Clr Drug Dosing ml/min Est GFR ( Amer) Est GFR (Non-Af Amer) BUN/Creatinine Ratio (10-20) Glucose (70-99) mg/dl POC Glucose (70-99) mg/dl Calcium (8.5-10.1) mg/dl Magnesium (1.8-2.4) mg/dl Total Bilirubin (0.2-1) mg/dl AST (15-37) U/L ALT (12-78) U/L Alkaline Phosphatase (45-117) U/L Troponin I (0-0.045) ng/ml Total Protein (6.4-8.2) gm/dl Albumin (3.4-5.0) gm/dl Globulin (2.5-4.0) gm/dl Albumin/Globulin Ratio (0.9-2) TSH (0.300-4.500) uIu/ml Urine Color Urine Appearance (Clear) Urine pH (4.5-7.5) Ur Specific [place] (1.000-1.030) Urine Protein (Negative) Urine Glucose (UA) (Negative) Urine Ketones (Negative) Urine Blood (Negative) Urine Nitrite (Negative) Urine Bilirubin (Negative) Urine Urobilinogen (Negative) Ur Leukocyte Esterase (Negative) Urine WBC (Auto) (0-5) /hpf Urine RBC (Auto) (0-4) /hpf U Hyaline Cast (Auto) (0-5) /lpf U Epithel Cells (Auto) (0-5) /lpf Urine Bacteria (Auto) (Negative) Diagnostic Findings CT OF THE HEAD WITHOUT CONTRAST CLINICAL HISTORY: Stroke evaluation COMPARISON STUDY: MRI of the brain February 11, 2013. TECHNIQUE: Helical axial images of the head were obtained without IV contrast. Automated exposure control was utilized for the study. A dose lowering technique was utilized adhering to the principles of ALARA. FINDINGS: No acute intracranial hemorrhage, midline shift or mass effect is present. The ventricular system is unremarkable. The basilar cisterns are patent. No extra-axial collections are present. There are no findings to suggest acute dural sinus thrombosis or acute territorial infarct. No significant calvarial abnormalities are present. Visualized portions of the sinuses and mastoid air cells are clear. IMPRESSION: No acute intracranial findings. CT angio neck with con, CT angio head w con CLINICAL HISTORY: 74 years-old Female with Stroke evaluation. Acute strokelike symptoms with dizziness and lightheadedness COMPARISON STUDY: Head CT of same day TECHNIQUE: Following the IV administration of 119 mL of Optiray 320, CT angiogram of the head and neck was performed from the aortic arch to the skull apex. Images are reviewed in the axial, sagittal, and coronal planes. 3-D MIPS images are created and assessed. IV contrast was administered without complication. All measurements were calculated based on NASCET criteria. A dose lowering technique was utilized adhering to the principles of ALARA. CT DOSE: 1076.65 mGy.cm FINDINGS: Mixed plaque of the thoracic aortic arch. Patency of the innominate artery and image bilateral subclavian arteries. Patent common carotid arteries. There is mild mixed plaque of the bilateral carotid bulbs and proximal internal artery arteries without high-grade stenosis. Bilateral internal carotid arteries are widely patent. Mild calcified plaque of the cavernous and supraclinoid segments. The middle and anterior cerebral arteries are patent. Codominant vertebral arteries also appear patent. There is mild kinking of the left V2 segment the level of C2 with mild luminal narrowing. Mild calcified plaque of the left V4 segment without high-grade stenosis. The basilar artery and posterior cerebral arteries appear patent. origin of the left posterior cerebral artery. Cerebral venous sinuses are patent. Lung apices are clear without pneumothorax. Streak artifact from dental amalgam hardware limits evaluation of the adjacent tissues. Mild polypoid mucosal thickening of the left maxillary sinus. There is no abnormal intracranial enhancement. Multilevel degenerative changes of the spine. 1.0 cm exophytic ossification involves the left occiput suggestive of a probable osteoma. IMPRESSION:Unremarkable CTA of the head and neck without aneurysm, dissection, high-grade stenosis or proximal branch occlusion. ECG Additional Comments: ECG on 02/07/2020 at 1207 with marketed sinus bradycardia with sinus arrhythmia and first-degree AV block, rate 44, no ischemic changes Code Status & VTE Plan Code Status Full code VTE Prophylaxis Plan VTE Prophylaxis will be ordered: Yes PG Care Time/CCT Total # of Minutes Spent Total Time Spent with Patient: Total time spent is greater than 50% in coordination of care (as documented) at patient's floor/unit and/or counseling patient: Coding Level of Care Code 85727 Initial Inpt Care Lvl 3 Diagnoses Slurred speech R47.81 Sinus bradycardia R00.1 1st degree AV block I44.0 Hyperlipidemia E78.00; E78.0 Hyperlipidemia type: pure hypercholesterolemia Hypothyroidism E03.9 Hypothyroidism type: acquired Age related osteoporosis M81.0 HTN (hypertension) I10 Hypertension type: essential hypertension Glaucoma H40.9 History of pulmonary embolism Z86.711 DVT prophylaxis Z29.9 (1) Hyperlipidemia Hyperlipidemia type: pure hypercholesterolemia Qualified Code(s): E78.00 - Pure hypercholesterolemia, unspecified; E78.0 - Pure hypercholesterolemia (2) Hypothyroidism Hypothyroidism type: acquired Qualified Code(s): E03.9 - Hypothyroidism, unspecified (3) HTN (hypertension) Hypertension type: essential hypertension Qualified Code(s): I10 - Essential (primary) hypertension
--- NOTE | 2020-02-07 17:47 | Cardiology Consultation ---
Date of Consultation February 07, 2020 Assessment & Plan (1) Sinus bradycardia: Mrs. De Guzman is a 74 year old female with a history of Hypertension, Hypercholesterolemia, Hypothyroidism, Glaucoma, Prior PE's / DVT with Pulmonary Infarct (felt secondary to Evista for osteoporosis), Lyme Disease, and she states that she has always had a slow heart rate -- and at times her HR dips down low 40's and upper 30's. 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 Nonetheless, she was talking to her daughter on the phone and her daughter asked "why are you slurring your speech?" Patient told her daughter that she was just tired. Her granddaughter also noted that the patient had slurred speech as well. Patient denies any focal weakness, numbness, tingling, or paralysis. No associated visual changes, blind spots, black spots, or loss of visual lora. Patient has also noted a dry mouth which she attributed to her new eyedrops -- she started for glaucoma. She spoke with her eye doctor who thought that this was unlikely due to the eyedrops. She was noted in the ER to have heart rate in the 40s and reports that at times she has noticed on her watch that her heart rate dips into the upper 20s -- but this is not new with the onset of slurred speech. Patient denies any nigel lightheadedness, but sometimes walks like she's drunk. She denies any history of syncope at any point. She has had periods of sinus bradycardia with marked sinus arrhythmia back August 2018, and sinus bradycardia in 2014 -- and none of these episodes were associated with symptoms. Further evaluation is necessary, including telemetry in order to match up any symptoms with her heart rate and rhythm. If telemetry is unrevealing during this hospitalization -- would recommend a 30 day event monitor upon discharge. However if we can prove that she truly has symptomatic bradycardia -- a pacemaker would be indicated. We will continue to follow. (2) Sinus arrhythmia: (3) 1st degree AV block: (4) Slurred speech: History of Present Illness Reason for Consultation: -- Sinus Bradycardia with marked Sinus Arrhythmia. -- Slurred speech. Requesting Physician: Jade Hughes MD Attending Physician: Arben Peguero MD History of Present Illness Mrs. De Guzman is a 74 year old female with a history of Hypertension, Hypercholesterolemia, Hypothyroidism, Glaucoma, Prior PE's / DVT with Pulmonary Infarct (felt secondary to Evista for osteoporosis), Lyme Disease, and she states that she has always had a slow heart rate -- and at times her HR dips down low 40's and upper 30's. 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 Nonetheless, she was talking to her daughter on the phone and her daughter asked "why are you slurring your speech?" Patient told her daughter that she was just tired. Her granddaughter also noted that the patient had slurred speech as well. Patient denies any focal weakness, numbness, tingling, or paralysis. No associated visual changes, blind spots, black spots, or loss of visual lora. Patient has also noted a dry mouth which she attributed to her new eyedrops -- she started for glaucoma. She spoke with her eye doctor who thought that this was unlikely due to the eyedrops. She was noted in the ER to have heart rate in the 40s and reports that at times she has noticed on her watch that her heart rate dips into the upper 20s -- but this is not new with the onset of slurred speech. Patient denies any nigel l ightheadedness, but sometimes walks like she's drunk. She denies any history of syncope at any point. In reviewing her past EKG's -- she has had periods of sinus bradycardia with marked sinus arrhythmia back August 2018, and sinus bradycardia in 2014 -- and none of these episodes were associated with symptoms. She is not on any negative chronotropic medications. Allergies Allergy/AdvReac Type Severity Reaction Status Date / Time alendronate sodium AdvReac Mild chest Verified 02/07/20 12:16 pain/GI UPSET Home Medications Home Medications Medication Instructions Recorded Confirmed Type calcium carbonate 600 mg (1,500 1 cap PO BID cap 04/08/19 02/07/20 History mg)-vitamin D3 500 unit capsule omega-3 fatty acids 1,000 mg 1,000 mg PO DAILY 08/02/19 02/07/20 History capsule simvastatin 20 mg tablet 20 mg PO QPM #90 tab 08/02/19 02/07/20 Rx triamterene 37.5 1 tab PO DAILY #90 tab 08/02/19 02/07/20 Rx mg-hydrochlorothiazide 25 mg tablet potassium chloride 10 mEq 10 meq PO DAILY #90 tab 12/12/19 02/07/20 Rx tablet,extended release levothyroxine 125 mcg tablet 125 mcg PO DAILY #90 tab 12/25/19 02/07/20 Rx vitamin E (dl, acetate) 400 unit 400 units PO BID #30 cap 01/13/20 02/07/20 Rx capsule Patient History Family History Mother , Age 61 Dementia Cancer Lung cancer Diabetes Father , Age 40 Rheumatic valvular disease Myocardial infarction Brother Dyslipidemia Hypertension Obesity Stroke, Onset Age: 44 Other Family history non-contributory Denies family history of Ovarian cancer Prostate cancer Breast cancer Colorectal cancer Social History Smoking Status: Never smoker Second Hand Exposure: Yes; Hx Alcohol Use: No Hx Substance Use: No Preferred Language: Korean Communication Ability: Effective Visual Impairment: Limited Hearing Ability: Normal Driller Hand Required: No Beliefs That Will Affect Care: None marital status: Current Living Situation: Spouse current occupational status: employed Feels Safe at Home: Yes Childhood Exposure to Second-Hand Smoke: Yes caffeine: No during the past year weight has: remained stable Dental Care, Regularly: Yes Physical Activity Frequency: Daily Seatbelt Use: always Sunscreen Use: No Physical Exam Physical Exam: GENERAL: Patient in no acute distress. HEENT: Head is atraumatic, normocephalic. EOM's intact. Facies symmetric. No perioral cyanosis. NECK: No JVD. JVP is at the level of the clavicle sitting upright. Carotid upstrokes are + 2 bilaterally. No bruits are noted. CHEST/LUNGS: Clear to auscultation throughout all lung lora. No wheezes, rales, or crackles. CVS: S1 and S2 are regular, bradycardic at 44 to 50 bpm with sinus arrhythmia on telemetry. No obvious murmurs, gallops, or rubs. PMI is nondisplaced. No lifts, heaves, or thrills. No abdominal aortic or renal bruits. ABDOMINAL EXAM: Bowel sounds are present. No masses, organomegaly, or tenderness. EXTREMITIES: No clubbing or cyanosis. No edema. Intact posterior tibial and radial pulses bilaterally. NEUROLOGIC EXAM: Patient is awake, alert, and oriented. Pleasant and cooperative. Answers questions appropriately. Normal movement in all 4 extremities. Gait pattern was not observed. EKG 02/07/2020: -- Sinus bradycardia with marked sinus arrhythmia, 1st degree AV block. -- Minimal criteria for LVH, possibly a normal variant. Recent Echocardiogram 08/25/2018 showed: -- Normal LV size, wall motion, and systolic function. -- LVEF 60% to 65%, no WMA's. -- No LVH. -- Normal RV size and systolic function. -- Grade I LV diastolic dysfunction. -- No significant valvular abnormalities. Results & Data ([facility]) Vital Signs (Past 12 Hours) Vital Signs Temp Pulse Resp BP Pulse Ox 02/07/20 16:22 47 L 16 166/91 H 97 02/07/20 16:21 47 L 17 02/07/20 16:03 56 L 18 02/07/20 15:30 39 L 17 96 02/07/20 15:00 52 L 17 160/92 H 94 02/07/20 14:32 46 L 14 95 02/07/20 14:31 48 L 13 147/71 H 94 02/07/20 13:30 47 L 15 131/70 95 02/07/20 13:01 45 L 16 143/75 H 99 02/07/20 12:40 43 L 17 137/66 98 02/07/20 12:39 43 L 15 143/69 H 95 02/07/20 12:36 49 L 10 L 147/65 H 97 02/07/20 11:46 36.6 C 50 L 18 155/71 H 98 Laboratory Results Laboratory Results - last 24 hr 02/07/20 02/07/20 02/07/20 12:06 12:06 12:06 WBC 9.25 RBC 4.97 Hgb 14.9 Hct 45.4 MCV 91.3 MCH 30.0 MCHC 32.8 RDW Std Deviation 44.4 RDW Coeff of Edy 13.3 Plt Count 264 MPV 10.1 Immature Gran % (Auto) 0.2 Neut % (Auto) 44.4 Lymph % (Auto) 45.7 [place] % (Auto) 7.2 Eos % (Auto) 2.2 Baso % (Auto) 0.3 Neut # (Auto) 4.10 Lymph # (Auto) 4.23 H [place] # (Auto) 0.67 H Eos # (Auto) 0.20 Baso # (Auto) 0.03 Immature Gran # (Auto) 0.02 PT 10.5 INR 1.0 APTT 25.6 PTT Ratio 0.9 Sodium 141 Potassium 3.7 Chloride 106 Carbon Dioxide 30 Anion Gap 5.0 BUN 18 Creatinine 0.94 Est Cr Clr Drug Dosing 56.7 Est GFR ( Amer) 69.3 Est GFR (Non-Af Amer) 59.8 BUN/Creatinine Ratio 19.1 Glucose 87 POC Glucose Calcium 9.4 Magnesium 2.4 Total Bilirubin 0.5 AST 29 ALT 35 Alkaline Phosphatase 54 Troponin I < 0.015 Total Protein 7.2 Albumin 3.7 Globulin 3.5 Albumin/Globulin Ratio 1.1 TSH 1.090 Urine Color Urine Appearance Urine pH Ur Specific [place] Urine Protein Urine Glucose (UA) Urine Ketones Urine Blood Urine Nitrite Urine Bilirubin Urine Urobilinogen Ur Leukocyte Esterase Urine WBC (Auto) Urine RBC (Auto) U Hyaline Cast (Auto) U Epithel Cells (Auto) Urine Bacteria (Auto) 02/07/20 02/07/20 12:30 14:20 WBC RBC Hgb Hct MCV MCH MCHC RDW Std Deviation RDW Coeff of Edy Plt Count MPV Immature Gran % (Auto) Neut % (Auto) Lymph % (Auto) [place] % (Auto) Eos % (Auto) Baso % (Auto) Neut # (Auto) Lymph # (Auto) [place] # (Auto) Eos # (Auto) Baso # (Auto) Immature Gran # (Auto) PT INR APTT PTT Ratio Sodium Potassium Chloride Carbon Dioxide Anion Gap BUN Creatinine Est Cr Clr Drug Dosing Est GFR ( Amer) Est GFR (Non-Af Amer) BUN/Creatinine Ratio Glucose POC Glucose 82 Calcium Magnesium Total Bilirubin AST ALT Alkaline Phosphatase Troponin I Total Protein Albumin Globulin Albumin/Globulin Ratio TSH Urine Color Yellow Urine Appearance Clear Urine pH 7.5 Ur Specific [place] 1.009 Urine Protein Negative Urine Glucose (UA) Negative Urine Ketones Negative Urine Blood Negative Urine Nitrite Negative Urine Bilirubin Negative Urine Urobilinogen Negative Ur Leukocyte Esterase Trace H Urine WBC (Auto) 1-5 Urine RBC (Auto) 0-4 U Hyaline Cast (Auto) 0 U Epithel Cells (Auto) 5-10 H Urine Bacteria (Auto) Negative PG Care Time/CCT Total # of Minutes Spent Total Time Spent with Patient: Total time spent is greater than 50% in coordination of care (as documented) at patient's floor/unit and/or counseling patient: 45 min Coding Level of Care Code 54656 OBS Care - Level 3 Diagnoses Sinus bradycardia R00.1 Sinus arrhythmia I49.8 1st degree AV block I44.0 Slurred speech R47.81
[2020-02-07] MEDS ORDERED: ASPIRIN 81 MG ECTAB PO STA (18:16)
[2020-02-07] MEDS ORDERED: ACETAMINOPHEN 325 MG TAB PO PRN (19:30)
[2020-02-07] MEDS ORDERED: PHARMACIST DISCHARGE MED REC CONSULT PRN (19:30)
[2020-02-07] MEDS ORDERED: SIMVASTATIN 20 MG TAB PO SCH (21:00)
--- NOTE | 2020-02-07 21:03 | Magnetic Resonance Report ---
MRI OF THE BRAIN WITHOUT CONTRAST CLINICAL HISTORY: Slurred speech. Lightheaded. Dizzy. Possible stroke. COMPARISON STUDY: CT scan dated 02/07/2020, MRI the brain dated 02/11/2013 FINDINGS: Sagittal T1, axial diffusion, proton density and T2 weighted axial, coronal FLAIR, and axial T1-weigh pablito images were acquired. No intra or extra-axial mass lesions are visualized Axial diffusion-weighted images reveal no evidence of acute or subacute infarction. There is no evidence of ventricular dilatation. Proton density T2-weighted and FLAIR images reveal a few tiny foci of increased T2 signal within the white matter, likely on a small vessel basis, and not unexpected for age. There are no abnormal flow voids. There are foci of increased T2 signal within the right mastoid likely on an inflammatory basis. IMPRESSION: 1. No acute intracranial findings 2. No evidence of acute or subacute infarction 3. No evidence of intracranial mass ACT 112: Negative or not required by law. Electronically signed by: Alex Zuñiga M.D. 02/07/2020 9:02 PM
[2020-02-07] MEDS: CALCIUM 600MG + VIT D 400 IU TAB PO SCH (21:14)
--- NOTE | 2020-02-07 23:48 | Communication Note ---
Date of Service: February 07, 2020 Pt with mild neck/shoulder pain, concerned about PE as she has had prior PE in the past. No tachycardia. No leg swelling, no signs of DVT. No SoB, pt with normal O2 sat on room air. EKG shows no R t-inversions/R heart strain. Well PE low risk. Follow clinically at this time.
[2020-02-08 05:03] LABS: Basophils # (auto) 0.03 K/uL (0-0.2); Basophils % (auto) 0.4 %; Eosinophils % (auto) 2.4 %; Hematocrit (blood only) 44.1 % (37-47); Hemoglobin 14.6 g/dL (12.0-16.0); Immature Granulocytes # (auto) 0.02 K/uL (0.00-0.02); Immature Granulocytes % (auto) 0.2 %; Lymphocytes # (auto) 3.33 K/uL (1.2-3.4); Lymphocytes % (auto) 40.5 %; Mean Corpuscular Hemoglobin 29.7 pg (25-34); Mean Corpuscular Hgb Conc 33.1 g/dL (32-36); Mean Corpuscular Volume 89.6 fL (80-100); Mean Platelet Volume 9.9 fL (7.4-10.4); Monocytes # (auto) 0.68 K/uL (0.11-0.59); Monocytes % (auto) 8.3 %; Neutrophils # (auto) 3.96 K/uL (1.4-6.5); Neutrophils % (auto) 48.2 %; Platelet Count 241 K/uL (130-400); RDW Coefficient of Variation 13.3 % (11.5-14.5); RDW Standard Deviation 43.5 fL (36.4-46.3); Red Blood Count 4.92 M/uL (4.2-5.4); White Blood Count 8.22 K/uL (4.8-10.8)
[2020-02-08 05:20] LABS: BUN Creatinine Ratio 17.8 (10-20); Calcium 9.1 mg/dl (8.5-10.1); Creatinine Clr Calc Pharmacy 69.4 ml/min; Est GFR (African American) 88.2; Est GFR (Non-African American) 76.1; Potassium 3.5 mmol/L (3.5-5.1)
[2020-02-08] MEDS ORDERED: ENOXAPARIN INJ 40 MG/0.4 ML SYR SQ SCH (06:00)
[2020-02-08] MEDS ORDERED: LEVOTHYROXINE SODIUM 125 MCG TABLET PO SCH (06:30)
--- NOTE | 2020-02-08 07:15 | Electrocardiogram Report ---
Test Reason : Blood Pressure : / mmHG Vent. Rate : 044 BPM Atrial Rate : 044 BPM P-R Int : 220 ms QRS Dur : 078 ms QT Int : 420 ms P-R-T Axes : 035 -07 047 degrees QTc Int : 359 ms Marked sinus bradycardia with sinus arrhythmia with 1st degree A-V block Minimal voltage criteria for LVH, may be normal variant Abnormal ECG When compared with ECG of 26-AUG-2018 01:45, No significant change was found Confirmed by Arben Peguero ([id number]) on 02/08/2020 7:14:56 AM Referred By: REFERRED SELF Confirmed By:Arben Peguero
[2020-02-08 08:11] LABS: Estimated Average Glucose 128 mg/dl; Hemoglobin A1C 6.1 % (4.5-5.6)
[2020-02-08] MEDS: CALCIUM 600MG + VIT D 400 IU TAB PO SCH (08:38)
[2020-02-08] MEDS ORDERED: ASPIRIN 81 MG ECTAB PO SCH (09:00)
[2020-02-08] MEDS ORDERED: POTASSIUM CHLORIDE 10 MEQ TABCR PO SCH (09:00)
[2020-02-08] MEDS ORDERED: OMEGA-3 (PURIFIED FISH OIL) 1 GM CAP PO SCH (09:00)
[2020-02-08] MEDS ORDERED: TRIAMTERENE/HCTZ 37.5/25MG TAB PO SCH (09:00)
--- NOTE | 2020-02-08 14:01 | XCELERA ---
[id number]
--- NOTE | 2020-02-08 14:38 | Discharge Summary ---
Date of Service date of admission - February 07, 2020 date of discharge - February 08, 2020 Admission HPI Per Admitting Provider This patient is a 74-year-old female with a history of PE status post 12 months of treatment with Eliquis, HTN, hyperlipidemia, lumbar spinal stenosis, hypothyroidism who presents to the ER with complaints of fatigue, lightheadedness, and dry mouth as well as slurred speech since yesterday as well as her family noticing that she was walking "like she was drunk." She thought it was due to some new eyedrops she started for glaucoma. She spoke with her eye doctor who thought that this was unlikely due to the eyedrops. She denies any weakness, numbness/tingling, visual changes, confusion. She was noted in the ER to have heart rate in the 40s and reports that time she is noticed on her watch that her heart rate dips into the 20s. Her daughter is very concerned about her low heart rate. Principal Diagnosis 1. slurred speech, transient ataxia/gait disturbance - resolved; medication side effect? 2. sinus bradycardia - chronic Discharge Exam Constitutional well developed and well nourished; no acute distress and no altered mental status ENMT external ear and nose normal, oropharynx normal Respiratory normal respiratory effort, lungs clear to auscultation Cardiovascular Rate/Rhythm: regular rhythm and + bradycardic Heart Sounds: normal S1 and normal S2; no murmur Vessels: posterior tibial pulses present and dorsalis pedis pulses present; no JVD Extremities: no edema Gastrointestinal (Abdomen) normal bowel sounds, soft, nontender, no hepatosplenomegaly Musculoskeletal no cyanosis or clubbing, extremities motor strength 5/5 Neurologic deep tendon reflexes 2+ bilaterally and moves all extremities; no focal motor deficits Gait: no ataxic gait Psychiatric A+Ox3, euthymic affect Discharge Data Allergies Allergy/AdvReac Type Severity Reaction Status Date / Time alendronate sodium AdvReac Mild chest Verified 02/10/20 14:56 pain/GI UPSET Consultations [facility] [place] Cardiology PT, OT Ordered Studies CT angio head w con Stat -- no stenosis, aneurysm, or dissection. CT angio neck with con Stat -- no stenosis, aneurysm, or dissection. CT head/brain wo con Stat -- no ICH or acute CVA. MR brain wo con Stat -- no acute stroke or other acute findings. Echocardiogram -- * EF 60-65% * No LV wall motion abnormalities * No shunt during bubble study * Normal valve function * Normal IVC size Hospital Course (1) Episodic ataxia with slurred speech: Extensive work-up including CT head, CTA head/neck, MRI brain, echocardiogram, orthostatic BPs, telemetry, and labs were negative or normal. Noted to have sinus bradycardia throughout her stay but she had normal chronotropic response to activity/walking (HRs would rise quickly from the 40s/50s to the 70s instantaneously). Records showed sinus bradycardia going back to at least 2019; thus this is chronic. During the stay when bradycardia was seen she did not have any symptoms referrable to such. TSH was normal. She is not on any AV simona agent. The exact cause of her presentation was uncertain. There was some question if her recently instituted eye drops caused dry mouth leading to the slurry speech. However, the etiology of the transient ataxia was not clear. Symptoms did not fit with a TIA. She had no symptoms, signs, or lab evidence of any infectious process. Seen by PT/OT - did well with each. Her ataxia was resolved by time of discharge. (2) Bradycardia: sinus. going back at least until 2019. TSH wnl. not on AV simona agents. echo wnl. seen by [facility] - they did not feel that presenting symptoms were due to the sinus bradycardia. Could consider 30-day event monitor to see if she has sinus pauses or higher AV simona block. Patient reported she had self-scheduled an appointment with Dr Torres, cardiology, in [place] later in February to discuss her bradycardia. (3) History of pulmonary embolism: 08/2018. completed therapy in the past. O2 sats wnl during the stay. No signs of PE while here. (4) 1st degree AV block: No Rx needed. See above re: sinus bradycardia. (5) Glaucoma: (6) Hyperlipidemia: Continue simvastatin. (7) Hypothyroidism: TSH wnl. Continue levothyroxine 125mg daily. (8) HTN (hypertension): Patient takes triamterene/HCTZ daily. Orthostatic BPs were normal while here. Na, K, and mag were normal. On hospital day #2 patient reported mild dizziness/lightheadedness but orthostatic BPs were normal. If patient were to continue with lightheadedness consider changing her diuretic to another anti-hypertensive agent. Total Time Total Time Spent Total Time Spent (In Minutes): 40 Total Time Includes: Examination of the Patient, Discharge Planning, Medication Reconciliation and Communication With Other Providers Discharge Plan Discharge Items Patient Disposition: Home - Self-Care Reason For Visit: SLURRED SPEECH, DIZZINESS/UNSTEADINESS Discharge Diagnosis: 1. Slurred speech - no evidence of stroke on CT head or MRI brain. Likely due to dry mouth as side effect from medication. 2. Dizziness/unsteadiness - improved. Uncertain cause. Unlikely to be the slow heart rate as you have had the slow heart rate for at least 2 years. No evidence of stroke or heart attack. Blood pressures are normal when you stand up (no drop in blood pressure seen). Thyroid normal. Other blood work normal. Good blood flow in all arteries of the head and neck. Normal echocardiogram (heart ultrasound). 3. Bradycardia (slow heart rate) - chronic dating back to at least 2019. Your heart rate rises appropriately with activity, walking, etc. Thyroid level normal. Please follow-up with [place] [facility] for this. An event monitor (30-day monitor) may or may not be recommended. Activity: Resume your previous activity Driving/Machine Use: ok to resume when dizziness is fully resolved Non-emergency contact: Primary Care Provider and Copy Lathe Operator Call non-emergency contact if: you have any medication questions, your symptoms worsen and you have a fever Follow-up/Referrals: Pedro Ortega MD [Primary Care Provider] - (see Dr Ortega within 5 days ) Diet: Heart Healthy Addtl Attending Provider Instructions: You were seen and treated for slurred speech and dizziness/unsteadiness on your feet. You underwent various tests including MRI brain, CT head, and CAT scans of the arteries of the head/neck -- all these tests were normal. No stroke found. Your echocardiogram showed good/normal heart function. You had no evidence of heart attack. No infections were found either. The cause of your slurry speech may have been from dry mouth as a medication side effect. The exact cause of the dizziness is uncertain. In some cases a diuretic (water pill) can make some people dizzy as it can lead to mild dehydration. You do take water pills at home. Recommendations - 1. focus on good hydration this weekend 2. check your blood pressure daily at home 3. if you are seeing LOW blood pressures perhaps the water pill medication is too strong for you; please show your blood pressure readings from home to your family doctor and discuss your blood pressure with him 4. please keep the appointment in [place] with cardiology later this month; will defer to Dr Jameel Torres whether to have an outpatient 30-day event monitor to look at your heart rate in more detail Follow-up - see Dr Ortega within 5 days; see Dr Torres later this month Return to [facility] if - * you have fever over 100.4 degrees * you have worsening weakness, dizziness, or feel like you are going to pass out * you have chest pain or difficulty breathing * any other concerns Pending Studies at Discharge: No Stand-Alone Forms: [facility], Smoking Cessation Medications and DC Order Prescriptions: Continued potassium chloride [Klor-Con 10] 10 mEq tablet extended release 10 meq PO DAILY Qty: 90 RF: 0 levothyroxine 125 mcg tablet 125 mcg PO DAILY Qty: 90 RF: 1 omega-3 fatty acids [Fish Oil Concentrate] 1,000 mg capsule 1,000 mg PO DAILY RF: 0 triamterene-hydrochlorothiazid 37.5-25 mg tablet 1 tab PO DAILY Qty: 90 RF: 1 simvastatin 20 mg tablet 20 mg PO QPM Qty: 90 RF: 1 vitamin E (dl, acetate) 400 unit capsule 400 units PO BID Qty: 30 RF: 0 calcium carbonate-vitamin D3 [Calcium 600 with Vitamin D3] 600 mg(1,500mg) - 500 unit capsule 1 cap PO BID RF: 0 Discharge Orders: Discharge Order (Routine); Ordered 02/08/20 Ordered By: Aman Amanda Admission Data Admit Date/Time: 02/07/20 18:16 Attending Provider: Aman Amanda Admit Provider: Jade Hughes Primary Care Provider: Pedro Ortega Other Providers: Jade Hughes ; Arben Peguero Other Interventions: Discharge Summary Assessment (RN) Last Done: 02/08/20 14:52 DC Date/Time DO NOT enter until pt leaves facility: 02/08/20 15:09 Coding Level of Care Code D/C Day Management >30 mins Diagnoses Episodic ataxia with slurred speech R27.0; R47.81 Bradycardia R00.1 History of pulmonary embolism Z86.711 1st degree AV block I44.0 Glaucoma H40.9 Hyperlipidemia E78.00; E78.0 Hyperlipidemia type: pure hypercholesterolemia Hypothyroidism E03.9 Hypothyroidism type: acquired HTN (hypertension) I10 Hypertension type: essential hypertension
--- NOTE | 2020-02-09 13:05 | Electrocardiogram Report ---
Test Reason : Blood Pressure : / mmHG Vent. Rate : 044 BPM Atrial Rate : 044 BPM P-R Int : 216 ms QRS Dur : 080 ms QT Int : 434 ms P-R-T Axes : 036 001 057 degrees QTc Int : 371 ms Marked sinus bradycardia with 1st degree A-V block Premature atrial complexes Borderline ECG When compared with ECG of 07-FEB-2020 12:07, No significant change was found Confirmed by Rajan Hartman ([id number]) on 02/09/2020 1:05:23 PM Referred By: REFERRED SELF Confirmed By:Rajan Hartman
== END 2020-02-08 15:09 | disposition home or self-care (01) | DRG 310 ==
LOC: ED 11:46 → SUATTDRO 18:16 → 1E 18:16